=== PATIENT | male | born 1990 | race Caucasian/White ===

== ENCOUNTER 2017-06-03 12:09 | Emergency (ER) | payer OTHER ==
[2017-06-03] MEDS ORDERED: Keppra 500 MG/5 ML*** 500 MG in D5w 100ML Mini Bag 100 ML 100 ML IV ONE (12:16)
--- NOTE | 2017-06-03 12:24 | ERPHSYRPT ---
- History of Present Illness Time Seen by Provider: 06/03/17 12:18 Source: patient, family Exam Limitations: clinical condition Physician History: recurrent seizures since 05/28, released yesterday from [facility] in [place], last seizure today [employer], no bleeding, +post ictal confusion and aphasia as in previous seizures, no tongue bite, no incont, no hx dm or cva Allergies/Adverse Reactions: azithromycin [From Zithromax] Allergy (Verified 05/31/15 18:21) cetirizine HCl [From Zyrtec] Allergy (Verified 05/31/15 18:22) Home Medications: Testosterone Cypionate 200 mg 05/31/15 [History] Venlafaxine HCl [Effexor] 75 mg 05/31/15 [History] Hx Tetanus, Diphtheria Vaccination/Date Given: Yes - Past Medical History Pertinent Past Medical History: Yes Neurological History: Seizures Musculoskeletal History: Other Psycho-Social History: Anxiety, Depression Other Medical History: low testosterone - Past Surgical History Past Surgical History: No - Social History Smoking Status: Never smoker Exposure to second hand smoke: No Drug Use: none Patient Lives Alone: No - Review of Systems Constitutional: No Fever Eyes: No Eye Redness Ears, Nose, & Throat: No Nose Congestion Respiratory: No Cyanosis, No Dyspnea Abdominal/Gastrointestinal: No Vomiting Neurological: No Focal Weakness Psychological: Other (other ros unobtainable at this time) Physical Exam - Nursing Vital Signs Nursing Vital Signs: Initial Vital Signs Temperature 98.2 F 06/03/17 12:10 Pulse Rate 104 H 06/03/17 12:10 Respiratory Rate 20 06/03/17 12:10 Blood Pressure 108/88 06/03/17 12:10 O2 Sat by Pulse Oximetry 99 06/03/17 12:10 Pain Scale Pain Intensity 10 - Humberto Coma Scale Best Eye Response (Humberto): (4) open spontaneously - Physical Exam General Appearance: no apparent distress, alert Eye Exam: bilateral eye: PERRL, EOMI Ears, Nose, Throat Exam: moist mucous membranes Neck Exam: normal inspection Respiratory: normal breath sounds Cardiovascular: regular rate/rhythm Gastrointestinal: soft, No tenderness Extremity Exam: normal inspection 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, 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: No normal speech, No abnormal eye position, No facial asymmetry Skin Exam: normal color SpO2 Interpretation: normal SpO2: 99 Oxygen Delivery: Room Air - Course Nursing assessment & vital signs reviewed: Yes EKG Interpreted by Me: Other (nsr 95 no stemi) - Radiology Exams Chest X-ray Interpretation: Reviewed by me, Other (no gross infil) - CT Exams Cervical Spine CT Interpretation: Discussed w/radiologist, Other (no fx) Head CT Interpretation: Discussed w/radiologist, Other (no bleed) Ordered Tests: Active Orders 24 hr Category Date Time Status Accucheck STAT Care 06/03/17 12:16 Active Acid Polymerization Operator STAT Care 06/03/17 12:17 Active EKG-ER Only STAT Care 06/03/17 12:16 Active IV Insertion STAT Care 06/03/17 12:16 Active NPO (ED) STAT Care 06/03/17 12:16 Active Pulse Oximetry (ED) STAT Care 06/03/17 12:16 Active Seizure Precautions -SCCHED STAT Care 06/03/17 12:28 Active CERVICAL SPINE WO CONTRAST [CT] Stat Exams 06/03/17 12:17 Taken CHEST 1 VIEW (PORTABLE) Stat Exams 06/03/17 12:17 Taken HEAD WITHOUT CONTRAST [CT] Stat Exams 06/03/17 12:17 Taken CBC W DIFF Stat Lab 06/03/17 12:20 Completed CMP Stat Lab 06/03/17 12:20 Completed Lactic Acid Stat Lab 06/03/17 12:26 Completed Urine Triage Profile Stat Lab 06/03/17 12:17 Ordered Medication Summary Discontinued Medications Generic Name Dose Route Start Last Admin Trade Name Freq PRN Reason Stop Dose Admin Levetiracetam 500 mg/ Dextrose 105 mls @ 400 mls/hr 06/03/17 12:16 06/03/17 12:28 IV 06/03/17 12:31 400 mls/hr STAT ONE Administration Lab/Rad Data: Laboratory Result Diagrams 06/03/17 12:20 06/03/17 12:20 Laboratory Results 06/03/17 06/03/17 06/03/17 Range/Units 12:26 12:20 12:20 WBC 5.9 (4.0-10.5) K/mm3 RBC 5.29 (4.1-5.6) M/mm3 Hgb 15.8 (12.5-18.0) gm/dl Hct 47.4 (42-50) % MCV 89.6 (78-100) fl MCH 29.9 (26-32) pg MCHC 33.3 (32-36) g/dl RDW 12.6 (11.5-14.0) % Plt Count 203 (150-450) K/mm3 MPV 11.1 H (6-9.5) fl Gran % 72.8 H (36.0-66.0) % Lymphocytes % 17.1 L (24.0-44.0) % Monocytes % 8.8 (0.0-12.0) % Eosinophils % 1.0 (0.00-5.0) % Basophils % 0.3 (0.0-0.4) % Basophils # 0.02 (0-0.4) Sodium 141 (136-145) mEq/L Potassium 4.1 (3.5-5.1) mEq/L Chloride 104 (98-107) mEq/L Carbon Dioxide 29.0 (21-32) mEq/L Anion Gap 11.7 (5-15) MEQ/L BUN 12 (9-20) mg/dL Creatinine 0.97 (0.55-1.30) mg/dl Estimated GFR > 60 ML/MIN Glucose 101 (70-110) MG/DL Lactic Acid 1.5 (0.4-2.0) Calcium 9.3 (8.5-10.1) mg/dL Total Bilirubin 0.40 (0.2-1.0) mg/dL AST 30 (15-37) U/L ALT 45 (12-78) U/L Alkaline Phosphatase 57 (46-116) U/L Serum Total Protein 7.2 (6.4-8.2) gm/dL Albumin 3.9 (3.4-5.0) g/dL - Progress Progress: improved Progress Note: 06/03/17 14:21 pt and family request transfer to [facility] in [facility], and pt is accept by Dr Ronald Bell Will see patient in: hospital (full admit) Counseled pt/family regarding: lab results, diagnosis, rad results - Departure Time of Disposition: 14:22 Departure Disposition: Transfer Clinical Impression: Seizure Condition: Stable Critical Care Time: No Referrals: SHAD DIAS MD [Primary Care Provider] -
[2017-06-03 12:35] LABS: BASOPHIL % 0.3 % (0.0-0.4); Basophil (Absolute #) 0.02 (0-0.4); Eosinophil (Absolute #) 0.06 (0-0.5); Granulocyte Absolute (ANC) 4.29 (1.4-6.9); Granulocytes % 72.8 % (36.0-66.0); Hematocrit 47.4 % (42-50); Hemoglobin 15.8 gm/dl (12.5-18.0); Lymphocyte (Absolute #) 1.01 (1.0-4.6); Lymphocytes % 17.1 % (24.0-44.0); Mean Cell Volume 89.6 fl (78-100); Mean Corpuscular Hemoglobin 29.9 pg (26-32); Mean Corpuscular Hgb Concent. 33.3 g/dl (32-36); Mean Platelet Volume 11.1 fl (6-9.5); Monocyte (Absolute #) 0.52 (0.0-1.3); Monocytes % 8.8 % (0.0-12.0); Platelet Count 203 K/mm3 (150-450); Red Blood Count 5.29 M/mm3 (4.1-5.6); Red Cell Distribution Width 12.6 % (11.5-14.0); White Blood Count 5.9 K/mm3 (4.0-10.5)
[2017-06-03 12:52] LABS: ALBUMIN 3.9 g/dL (3.4-5.0); ALKALINE PHOSPHATASE 57 U/L (46-116); ANION GAP 11.7 MEQ/L (5-15); BLOOD UREA NITROGEN 12 mg/dL (9-20); CHLORIDE 104 mEq/L (98-107); Calcium 9.3 mg/dL (8.5-10.1); Creatinine 1 0.97 mg/dl (0.55-1.30); EST GLOMERULAR FILTRATION RATE > 60 ML/MIN; Glucose 101 MG/DL (70-110); Potassium 4.1 mEq/L (3.5-5.1); SGOT/AST 30 U/L (15-37); SGPT/ALT 45 U/L (12-78); SODIUM 141 mEq/L (136-145); Total Protein 7.2 gm/dL (6.4-8.2)
[2017-06-03 17:01] VITALS: O2SAT 98
[2017-06-03 17:02] VITALS: BP 136/82; PULSE 86
--- NOTE | 2017-06-03 20:47 | XRAY ---
Indication: Seizure. Comparison: September 29, 2011. Portable chest again demonstrates normal heart, lungs, and bony thorax.
--- NOTE | 2017-06-03 20:59 | XRAY ---
Indication: Syncope and confusion. Multiple contiguous axial images obtained through the head without contrast. Comparison: September 29, 2011. Again normal appearing brain parenchyma, ventricles, and bony calvarium. Visualized paranasal sinuses and mastoid air cells clear. Impression: Stable normal CT head without contrast exam. Comment: Preliminary interpretation was made by [facility]. No critical discrepancy. CTDI 67.22
--- NOTE | 2017-06-03 21:02 | XRAY ---
Indication: Syncope. Neck pain. Multiple contiguous axial images obtained through the cervical spine. Sagittal and coronal reformatted images obtained. Comparison: September 29, 2011. Axial images again negative for acute fracture, suspicious bony lesions, or spinal canal stenosis. Sagittal and coronal reformatted images again demonstrates normal alignment. Vertebral body heights and disc spaces maintained. No acute compression fracture, subluxation, or jump facet. Normal-appearing craniocervical junction. Visualized noncontrasted soft tissues including lung apices unremarkable. CT head reported separately. Impression: Stable normal CT cervical spine. Comment: Preliminary interpretation was made by [facility]. No critical discrepancy. CTDI 53.72
== END 2017-06-03 17:04 | disposition short-term general hospital (02) ==
LOC: ED 12:09
DX: R56.9 Unspecified convulsions (principal)
CPT/HCPCS: 36000; 36415; 70450; 71010; 72125; 80053; 82962; 83605; 85025; 93005; 93041; 96360; 96365; 99285; J1953

== ENCOUNTER 2017-06-27 19:11 | Observation (INO) | payer OTHER ==
[~2017-06-27 19:11] MED LIST: Ativan 2 MG/1 ML VIAL ONE
[2017-06-27 19:32] LABS: BASOPHIL % 0.3 % (0.0-0.4); Basophil (Absolute #) 0.02 (0-0.4); Eosinophil % 1.1 % (0.00-5.0); Eosinophil (Absolute #) 0.08 (0-0.5); Granulocyte Absolute (ANC) 4.47 (1.4-6.9); Granulocytes % 59.9 % (36.0-66.0); Hematocrit 41.5 % (42-50); Hemoglobin 14.2 gm/dl (12.5-18.0); Lymphocyte (Absolute #) 2.16 (1.0-4.6); Mean Cell Volume 87.2 fl (78-100); Mean Corpuscular Hemoglobin 29.8 pg (26-32); Mean Corpuscular Hgb Concent. 34.2 g/dl (32-36); Mean Platelet Volume 11.5 fl (6-9.5); Monocyte (Absolute #) 0.72 (0.0-1.3); Monocytes % 9.7 % (0.0-12.0); Platelet Count 179 K/mm3 (150-450); Red Blood Count 4.76 M/mm3 (4.1-5.6); Red Cell Distribution Width 12.5 % (11.5-14.0); White Blood Count 7.5 K/mm3 (4.0-10.5)
--- NOTE | 2017-06-27 19:33 | ERPHSYRPT ---
- History of Present Illness Source: family, EMS Exam Limitations: clinical condition Timing/Duration: today Severity: moderate Character of Deficits: impaired speech, unable to speak Baseline/Normal Cognition: alert but confused Current Cognition: alert but confused Baseline Gait: walks w/o assistance Associated Symptoms: confusion Hx Tetanus, Diphtheria Vaccination/Date Given: Yes Hx Influenza Vaccination/Date Given: No Hx Pneumococcal Vaccination/Date Given: No <DANIEL LOZADA - Last Filed: 06/27/17 20:57> <ELVIRA JAMES - Last Filed: 06/28/17 07:33> - History of Present Illness Time Seen by Provider: 06/27/17 19:20 Physician History: 27 y/o male with recent history of seizure disorder brought in by ambulance for multiple seizures that started 30 mins prior to arrival. The longest seizure was 4 mins long and the patient went into a post-ictal state. Pt is not able to provide any history due to his somnolent state. Pt was initially diagnosed with seizures on May [id number] and was transferred to [facility] in [place]. CT scan and MRI brain were unremarkable and the patient was started on keppra and topamax. Pt was seen again on June 04 and spent 5 days at [facility] at which time, his keppra dose was increased to 1500mg twice daily. As per mother, patient has been compliant on his medications. Pt is on buspar for depression that was started 2 weeks ago. Of note, patient has been under a lot of stress lately over the past 3 days. No head trauma, no other new mediations, no illicit drug use or alcohol use. Pt did vomit each time he had a seizure, but he has not had any upper respiratory symptoms. ( DANIEL LOZADA) Allergies/Adverse Reactions: azithromycin [From Zithromax] Allergy (Verified 05/31/15 18:21) cetirizine HCl [From Zyrtec] Allergy (Verified 05/31/15 18:22) Home Medications: Testosterone Cypionate 200 mg 05/31/15 [History] Buspirone HCl [Buspar] 1 tab PO BID 06/27/17 [History] Escitalopram Oxalate 20 mg PO DAILY 06/27/17 [History] Levetiracetam [Keppra] 1,500 mg PO BID 06/27/17 [History] Topiramate [Topamax] 50 mg PO QHS 06/27/17 [History] Trazodone HCl 50 mg [Desyrel 50 mg] 1 tab PO BID 06/27/17 [History] - Review of Systems Constitutional: No Fever, No Chills Eyes: No Symptoms Ears, Nose, & Throat: No Symptoms Respiratory: No Cough, No Dyspnea Cardiac: No Chest Pain, No Edema, No Syncope Abdominal/Gastrointestinal: No Abdominal Pain, No Nausea, No Vomiting, No Diarrhea Genitourinary Symptoms: No Dysuria Musculoskeletal: No Back Pain, No Neck Pain Skin: No Rash Neurological: Seizure, Speech Changes, No Dizziness, No Focal Weakness, No Sensory Changes Psychological: Anxiety, No Alcohol Abuse, No Drug Abuse Endocrine: No Symptoms All Other Systems: Reviewed and Negative <DANIEL LOZADA - Last Filed: 06/27/17 20:57> - Past Medical History Pertinent Past Medical History: Yes Neurological History: Seizures Musculoskeletal History: Other Psycho-Social History: Anxiety, Depression Other Medical History: low testosterone - Past Surgical History Past Surgical History: No - Social History Smoking Status: Never smoker Exposure to second hand smoke: No Drug Use: none Patient Lives Alone: No <DANIEL LOZADA - Last Filed: 06/27/17 20:57> - Humberto Coma Scale Best Eye Response ([place]): (4) open spontaneously Best Verbal Response ([place]): (1) no verbal response Best Motor Response ([place]): (6) obeys commands Humberto Total: 11 - Physical Exam General Appearance: no apparent distress, alert Eye Exam: bilateral eye: PERRL, EOMI Ears, Nose, Throat Exam: normal ENT inspection, moist mucous membranes Neck Exam: normal inspection, non-tender, supple, full range of motion Respiratory: normal breath sounds, lungs clear, airway intact, No respiratory distress Cardiovascular: regular rate/rhythm, No edema Gastrointestinal: soft, No tenderness, No distention Back Exam: normal inspection, normal range of motion Extremity Exam: normal inspection, normal range of motion, No pedal edema 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, oriented x 3 appeals rn Exam: normal hearing, PERRL, tongue midline, No normal speech Coordination/Gait: normal finger to nose, normal gait Motor/Sensory: no motor deficit, no sensory deficit Skin Exam: normal color, warm, dry, No rash SpO2 Interpretation: normal <DANIEL LOZADA - Last Filed: 06/27/17 20:57> - Nursing Vital Signs Nursing Vital Signs: Initial Vital Signs Temperature 98.1 F 06/27/17 19:18 Pulse Rate 90 06/27/17 19:18 Respiratory Rate 24 06/27/17 19:18 Blood Pressure 134/81 06/27/17 19:18 O2 Sat by Pulse Oximetry 99 06/27/17 19:18 Pain Scale Pain Intensity 0 - Course Nursing assessment & vital signs reviewed: Yes EKG Interpreted by Me: RATE (HR 76), NORMAL AXIS, NORMAL INTERVALS, NORMAL QRS <DANIEL LOZADA - Last Filed: 06/27/17 20:57> Ordered Tests: Active Orders 24 hr Category Date Time Status Accucheck STAT Care 06/27/17 19:23 Active Clean Catch Urine Specimen STAT Care 06/27/17 19:46 Active EKG-ER Only STAT Care 06/27/17 19:23 Active IV Insertion STAT Care 06/27/17 19:23 Active IV Insertion-2nd Peripheral STAT Care 06/27/17 19:26 Active NPO (ED) STAT Care 06/27/17 19:23 Active CBC W DIFF Stat Lab 06/27/17 19:23 Completed CMP Stat Lab 06/27/17 19:23 Completed ETHYL ALCOHOL Stat Lab 06/27/17 19:24 Completed Lactic Acid Stat Lab 06/27/17 19:28 Completed UA W/RFX UR CULTURE Stat Lab 06/27/17 20:15 Completed Urine Triage Profile Stat Lab 06/27/17 20:15 Completed Medication Summary Generic Name Dose Route Start Last Admin Trade Name Freq PRN Reason Stop Dose Admin Buspirone HCl 10 mg 06/28/17 08:00 Buspar 5 Mg PO 07/28/17 07:59 BID HORTENCIA Escitalopram Oxalate 20 mg 06/28/17 08:00 Lexapro 10 Mg PO 07/28/17 07:59 QAM HROTENCIA Levetiracetam 1,500 mg 06/28/17 08:00 Keppra 500 Mg PO 07/28/17 07:59 BID HORTENCIA Topiramate 50 mg 06/28/17 08:00 Topamax 25 Mg PO 07/28/17 07:59 BID HORTENCIA Discontinued Medications Generic Name Dose Route Start Last Admin Trade Name Louann PRN Reason Stop Dose Admin Buspirone HCl 10 mg 06/28/17 00:25 06/28/17 00:49 Buspar 5 Mg PO 06/28/17 00:26 10 mg ONCE ONE Administration Buspirone HCl Confirm 06/28/17 00:32 Buspar 5 Mg Administered 06/28/17 00:33 Dose 10 mg .ROUTE .STK-MED ONE Levetiracetam 1,500 mg/ 115 mls @ 220 mls/hr 06/27/17 20:03 06/27/17 20:14 Dextrose IV 06/27/17 20:34 220 mls/hr STAT ONE Administration Sodium Chloride Confirm 06/27/17 20:05 Sodium Chloride 0.9% 100 Ml Ivpb Administered 06/27/17 20:06 Dose 100 mls @ ud IV .STK-MED ONE Sodium Chloride Confirm 06/27/17 20:07 Sodium Chloride 0.9% 100 Ml Ivpb Administered 06/27/17 20:08 Dose 100 mls @ ud IV .STK-MED ONE Dextrose Confirm 06/27/17 20:26 D5w 100ml Mini Bag 100 Ml Administered 06/27/17 20:27 Dose 200 mls @ ud IV .STK-MED ONE Levetiracetam Confirm 06/27/17 20:04 Keppra 500 Mg/5 Ml Administered 06/27/17 20:05 Dose 1,000 mg .ROUTE .STK-MED ONE Levetiracetam 500 mg 06/27/17 20:19 Keppra 500 Mg/5 Ml IV 06/27/17 20:20 .STK-MED ONE Ondansetron HCl 4 mg 06/27/17 20:00 06/27/17 20:12 Zofran 4 Mg/2 Ml Vial IV 06/27/17 20:01 4 mg STAT ONE Administration Ondansetron HCl Confirm 06/27/17 20:00 Zofran 4 Mg/2 Ml Vial Administered 06/27/17 20:01 Dose 4 mg .ROUTE .STK-MED ONE Topiramate 50 mg 06/28/17 00:28 06/28/17 00:49 Topamax 25 Mg PO 06/28/17 00:29 50 mg ONCE ONE Administration Topiramate Confirm 06/28/17 00:45 Topamax 100 Mg Administered 06/28/17 00:46 Dose 100 mg .ROUTE .STK-MED ONE Lab/Rad Data: Laboratory Result Diagrams 06/27/17 19:23 06/27/17 19:23 Laboratory Results 06/27/17 06/27/17 06/27/17 Range/Units 20:15 20:15 19:28 WBC (4.0-10.5) K/mm3 RBC (4.1-5.6) M/mm3 Hgb (12.5-18.0) gm/dl Hct (42-50) % MCV (78-100) fl MCH (26-32) pg MCHC (32-36) g/dl RDW (11.5-14.0) % Plt Count (150-450) K/mm3 MPV (6-9.5) fl Gran % (36.0-66.0) % Lymphocytes % (24.0-44.0) % Monocytes % (0.0-12.0) % Eosinophils % (0.00-5.0) % Basophils % (0.0-0.4) % Basophils # (0-0.4) Sodium (136-145) mEq/L Potassium (3.5-5.1) mEq/L Chloride (98-107) mEq/L Carbon Dioxide (21-32) mEq/L Anion Gap (5-15) MEQ/L BUN (9-20) mg/dL Creatinine (0.55-1.30) mg/dl Estimated GFR ML/MIN Glucose (70-110) MG/DL Lactic Acid 1.3 (0.4-2.0) Calcium (8.5-10.1) mg/dL Total Bilirubin (0.2-1.0) mg/dL AST (15-37) U/L ALT (12-78) U/L Alkaline Phosphatase (46-116) U/L Serum Total Protein (6.4-8.2) gm/dL Albumin (3.4-5.0) g/dL Ur Collection Type CCMS Urine Color YELLOW (YELLOW) Urine Appearance CLEAR (CLEAR) Urine pH 5.0 (5-6) Ur Specific [place] 1.025 (1.005-1.025) Urine Protein NEGATIVE (Negative) Urine Ketones SMALL (NEGATIVE) Urine Blood NEGATIVE (0-5) Eliel/ul Urine Nitrite NEGATIVE (NEGATIVE) Urine Bilirubin NEGATIVE (NEGATIVE) Urine Urobilinogen NORMAL (0-1) mg/dL Ur Leukocyte Esterase NEGATIVE (NEGATIVE) Urine Culture Reflexed NO (NO) Urine Glucose NEGATIVE (NEGATIVE) mg/dL Urine Opiates Level NEG. (NEGATIVE) Ur Methadone NEG. (NEGATIVE) Urine Barbiturates NEG. (NEGATIVE) Ur Phencyclidine (PCP) NEG. (NEGATIVE) Urine Amphetamine NEG. (NEGATIVE) U Benzodiazepine Level POS. (NEGATIVE) Urine Cocaine NEG. (NEGATIVE) Urine Marijuana (THC) NEG. (NEGATIVE) Ethyl Alcohol (0.00-0.01) % Specimen Received 06-27-17202406/27/17 06/27/17 06/27/17 Range/Units 19:24 19:23 19:23 WBC 7.5 (4.0-10.5) K/mm3 RBC 4.76 (4.1-5.6) M/mm3 Hgb 14.2 (12.5-18.0) gm/dl Hct 41.5 L (42-50) % MCV 87.2 (78-100) fl MCH 29.8 (26-32) pg MCHC 34.2 (32-36) g/dl RDW 12.5 (11.5-14.0) % Plt Count 179 (150-450) K/mm3 MPV 11.5 H (6-9.5) fl Gran % 59.9 (36.0-66.0) % Lymphocytes % 29.0 (24.0-44.0) % Monocytes % 9.7 (0.0-12.0) % Eosinophils % 1.1 (0.00-5.0) % Basophils % 0.3 (0.0-0.4) % Basophils # 0.02 (0-0.4) Sodium 141 (136-145) mEq/L Potassium 3.6 (3.5-5.1) mEq/L Chloride 106 (98-107) mEq/L Carbon Dioxide 23.0 (21-32) mEq/L Anion Gap 15.4 H (5-15) MEQ/L BUN 17 (9-20) mg/dL Creatinine 1.22 (0.55-1.30) mg/dl Estimated GFR > 60 ML/MIN Glucose 107 (70-110) MG/DL Lactic Acid (0.4-2.0) Calcium 8.9 (8.5-10.1) mg/dL Total Bilirubin 0.30 (0.2-1.0) mg/dL AST 21 (15-37) U/L ALT 20 (12-78) U/L Alkaline Phosphatase 48 (46-116) U/L Serum Total Protein 6.7 (6.4-8.2) gm/dL Albumin 4.0 (3.4-5.0) g/dL Ur Collection Type Urine Color (YELLOW) Urine Appearance (CLEAR) Urine pH (5-6) Ur Specific [place] (1.005-1.025) Urine Protein (Negative) Urine Ketones (NEGATIVE) Urine Blood (0-5) Eliel/ul Urine Nitrite (NEGATIVE) Urine Bilirubin (NEGATIVE) Urine Urobilinogen (0-1) mg/dL Ur Leukocyte Esterase (NEGATIVE) Urine Culture Reflexed (NO) Urine Glucose (NEGATIVE) mg/dL Urine Opiates Level (NEGATIVE) Ur Methadone (NEGATIVE) Urine Barbiturates (NEGATIVE) Ur Phencyclidine (PCP) (NEGATIVE) Urine Amphetamine (NEGATIVE) U Benzodiazepine Level (NEGATIVE) Urine Cocaine (NEGATIVE) Urine Marijuana (THC) (NEGATIVE) Ethyl Alcohol < 0.010 (0.00-0.01) % Specimen Received - Progress Progress: unchanged <DANIEL LOZADA - Last Filed: 06/27/17 20:57> - Progress Discussed with : Reji Will see patient in: hospital (observation) Counseled pt/family regarding: lab results, diagnosis <ELVIRA JAMES - Last Filed: 06/28/17 07:33> - Progress Progress Note: 06/27/17 20:04 Pt has had 2 seizures in the ER, with the longest lasting about 45 seconds. Pt turns red and stiffens up. Pt will be loaded with keppra 1500mg IV loading dose. Pt will be transferred to neurology group at [facility]. 06/27/17 20:57 I spoke to the neurologist, Dr De Dios and the patient has been accepted, however, there is a several hour wait for a bed to open up. I attempted to admit the patient for observation but the hospitalist, Dr Barlow refused the admission. Patient will be held in the ER until a bed opens up for transfer to [facility]. (DANIEL LOZADA) Dr. Mendoza notified and agreed to accept pt. for further care while awaiting transfer to [place] at [address]. 06/28/17 07:33 (ELVIRA JAMES) <DANIEL LOZADA - Last Filed: 06/27/17 20:57> - Departure Time of Disposition: 07:32 Departure Disposition: Observation Critical Care Time: No <ELVIRA JAMES - Last Filed: 06/28/17 07:33> - Departure Clinical Impression: Intractable seizures Condition: Stable Referrals: SHAD MENDOZA MD [Primary Care Provider] -
[2017-06-27] MEDS ORDERED: Zofran 4 MG/2 ML VIAL IV ONE (20:00)
[2017-06-27] MEDS ORDERED: Zofran 4 MG/2 ML VIAL ONE (20:00)
[2017-06-27] MEDS ORDERED: Keppra 500 MG/5 ML*** 1,500 MG in D5w 100ML Mini Bag 100 ML 100 ML IV ONE (20:03)
[2017-06-27 20:04] LABS: ALKALINE PHOSPHATASE 48 U/L (46-116); ANION GAP 15.4 MEQ/L (5-15); BLOOD UREA NITROGEN 17 mg/dL (9-20); CHLORIDE 106 mEq/L (98-107); Calcium 8.9 mg/dL (8.5-10.1); Creatinine 1 1.22 mg/dl (0.55-1.30); EST GLOMERULAR FILTRATION RATE > 60 ML/MIN; Glucose 107 MG/DL (70-110); Potassium 3.6 mEq/L (3.5-5.1); SGOT/AST 21 U/L (15-37); SGPT/ALT 20 U/L (12-78); SODIUM 141 mEq/L (136-145); Total Protein 6.7 gm/dL (6.4-8.2)
[2017-06-27] MEDS ORDERED: Keppra 500 MG/5 ML ONE (20:04)
[2017-06-27] MEDS ORDERED: Sodium Chloride 0.9% 100 ML IVPB 100 ML IV ONE ×2 (20:05→20:07)
[2017-06-27] MEDS ORDERED: Keppra 500 MG/5 ML IV ONE (20:19)
[2017-06-27 20:25] LABS: Appearance CLEAR (CLEAR); Glucose NEGATIVE (NEGATIVE); Leukocyte Esterase NEGATIVE (NEGATIVE); Nitrite NEGATIVE (NEGATIVE); Protein,Urine Dip NEGATIVE (Negative); Specific Gravity 1.025 (1.005-1.025)
[2017-06-27 20:26] LABS: Bilirubin NEGATIVE (NEGATIVE); Blood NEGATIVE Ery/ul (0-5); Ketones SMALL (NEGATIVE); Urobilinogen NORMAL mg/dL (0-1)
[2017-06-27] MEDS ORDERED: D5w 100ML Mini Bag 100 ML 200 ML IV ONE (20:26)
[2017-06-27 20:31] LABS: Amphetamine,Urine NEG. (NEGATIVE); Barbiturate,Urine NEG. (NEGATIVE); Benzodiazepine,Urine POS. (NEGATIVE); Cocaine,Urine NEG. (NEGATIVE); Methadone,Urine NEG. (NEGATIVE); Opiate,Urine NEG. (NEGATIVE); PCP,Urine NEG. (NEGATIVE); THC,Urine NEG. (NEGATIVE)
[2017-06-28] MEDS ORDERED: BUSPAR 5 MG PO ONE (00:25)
[2017-06-28] MEDS ORDERED: Topamax 25 MG PO ONE (00:28)
[2017-06-28] MEDS ORDERED: BUSPAR 5 MG ONE (00:32)
[2017-06-28] MEDS ORDERED: Topamax 100 MG ONE (00:45)
[2017-06-28] MEDS ORDERED: Ativan 2 MG/1 ML VIAL IV PRN (08:10)
[2017-06-28] MEDS ORDERED: Ativan 2 MG/1 ML VIAL ONE (08:12)
--- NOTE | 2017-06-28 08:53 | PCM.HP ---
History of Present Illness - Chief Complaint Chief Complaint: seizures History of Present Illness: is a 27 year old male with recently diagnosed epilepsy at [facility]. He has a remote history of head injury but nothing recent, his seizures have been intractable and difficult to control. There is a thought of some relationship to stress, perhaps PTSD from his job as well as his video EEG at [facility] showed a component of psychiatric pseudoseizures as well. He apparently has had multiple seizures since yesterday, there are no beds available at [facility]. He had a seizure immediately upon arrival to the floor , has been given ativan and is being transferred to ICU. - Review of Systems Constitutional: No Fever, No Chills Respiratory: No Cough, No Short Of Breath Cardiac: No Chest Pain, No Edema, No Syncope Abdominal/Gastrointestinal: No Abdominal Pain, No Nausea, No Vomiting, No Diarrhea Neurological: Seizure All Other Systems: Reviewed and Negative Medications & Allergies Home Medications: Home Medication List Buspirone HCl [Buspar] 1 tab PO BID 06/27/17 [History Confirmed 06/28/17] Escitalopram Oxalate 20 mg PO DAILY 06/27/17 [History Confirmed 06/28/17] Levetiracetam [Keppra] 1,500 mg PO BID 06/27/17 [History Confirmed 06/28/17] Topiramate [Topamax] 50 mg PO BID 06/27/17 [History Confirmed 06/28/17] Trazodone HCl 50 mg [Desyrel 50 mg] 1 tab PO BID 06/27/17 [History Confirmed 06/28/17] Allergies/Adverse Reactions: Allergies Allergy/AdvReac Type Severity Reaction Status Date / Time azithromycin [From Zithromax] Allergy Verified 06/28/17 08:40 cetirizine HCl [From Zyrtec] Allergy Verified 06/28/17 08:40 - Past Medical History Past Medical History: Yes Neurological History: Seizures ENT History: No Pertinent History Cardiac History: No Pertinent History Respiratory History: No Pertinent History Endocrine Medical History: No Pertinent History Musculoskelatal History: Other GI Medical History: No Pertinent History History: No Pertinent History Pyscho-Social History: Anxiety, Depression Male Reproductive Disorders: No Pertinent History Comment: low testosterone - Past Surgical History Past Surgical History: No - Social History Smoking Status: Never smoker Exposure to second hand smoke: No Alcohol: None Drug Use: none - Physical Exam Vital Signs: Vital Signs - 24 hr Temp Pulse Resp BP Pulse Ox 06/28/17 07:40 74 16 134/64 97 06/28/17 06:47 72 18 98 06/28/17 05:56 68 18 98 06/28/17 05:00 62 18 128/81 98 06/28/17 03:00 60 14 98 06/28/17 02:42 63 14 98 06/28/17 01:44 74 18 98 06/28/17 00:50 67 20 98 06/27/17 23:57 90 18 124/59 98 06/27/17 23:36 92 H 18 124/59 97 06/27/17 22:46 72 16 140/84 97 06/27/17 22:12 68 18 122/76 98 06/27/17 21:02 68 18 120/76 97 06/27/17 20:17 72 16 127/74 97 06/27/17 19:46 84 16 147/88 98 06/27/17 19:18 98.1 F 90 24 134/81 99 General Appearance: no apparent distress, alert, other (unable to speak, per RT this is his usual "post-ictal" state and he is unable to speak for a period of time. he is alert, cooperative and nods or shakes his head to answer yes or no questions) Neurologic Exam: alert, oriented x 3, cooperative, No motor deficits, No intoxicated appearance, No motor weakness Eye Exam: PERRL/EOMI, eyes nml inspection Neck Exam: normal inspection, non-tender, supple, full range of motion Respiratory Exam: normal breath sounds, lungs clear, No respiratory distress Cardiovascular Exam: regular rate/rhythm, normal heart sounds, normal peripheral pulses Gastrointestinal/Abdomen Exam: soft, normal bowel sounds, No tenderness, No mass Extremity Exam: normal inspection, normal range of motion, pelvis stable Skin Exam: normal color, warm, dry, No rash Assessment/Plan (1) Intractable seizures Current Visit: Yes Status: Acute Assessment & Plan: has been given a dose of IV ativan, will continue this as well as his home meds at this time and observe in ICU until a bed is available for him to be under the care of his neurology team at [facility]. he denies any recent cough, fever or other signs of infection. Code(s): G40.919 - EPILEPSY, UNSP, INTRACTABLE, WITHOUT STATUS EPILEPTICUS
[2017-06-28] MEDS: KEPPRA 500 MG PO SCH ×3 (09:45→20:39)
[2017-06-28] MEDS: Lexapro 10 MG PO SCH ×2 (09:45→10:48)
[2017-06-28] MEDS: BUSPAR 5 MG PO SCH ×3 (09:46→20:39)
[2017-06-28] MEDS: Topamax 25 MG PO SCH ×3 (09:52→20:39)
[2017-06-28 20:07] VITALS: BP 128/77; PULSE 66; O2SAT 98
[2017-06-28] MEDS ORDERED: DESYREL 50 MG PO SCH (22:00)
== END 2017-06-28 20:45 ==
LOC: ED 19:11 → MED SURG 06-28 07:55 → ICU 06-28 07:55
PROVIDERS: ADMIT Family Medicine; ATTEND Family Medicine
DX: G40.919 Epilepsy, unspecified, intractable, without status epilepticus (principal); Z79.899 Other long term (current) drug therapy; F41.8 Other specified anxiety disorders
CPT/HCPCS: 36000; 36415; 80053; 80177; 80307; 81002; 82962; 83605; 85025; 93005; 96365; G0378; G0481; J1953; J2060; J2405; A9270-GY

== ENCOUNTER 2017-07-04 12:13 | Emergency (ER) | payer OTHER ==
[2017-07-04] MEDS ORDERED: Sodium Chloride 0.9% 1000 ML 1,000 ML ONE (12:42)
[2017-07-04] MEDS: Sodium Chloride 0.9% 1000 ML 1,000 ML IV STA (12:43)
[2017-07-04 13:09] LABS: ANION GAP 18.5 MEQ/L (5-15); BLOOD UREA NITROGEN 15 mg/dL (9-20); CHLORIDE 105 mEq/L (98-107); Calcium 9.2 mg/dL (8.5-10.1); Carbon Dioxide 19.5 mEq/L (21-32); Creatinine 1 1.27 mg/dl (0.55-1.30); EST GLOMERULAR FILTRATION RATE > 60 ML/MIN; Glucose 101 MG/DL (70-110); Potassium 3.8 mEq/L (3.5-5.1); SODIUM 139 mEq/L (136-145)
--- NOTE | 2017-07-04 13:43 | ERPHSYRPT ---
- History of Present Illness Time Seen by Provider: 07/04/17 12:34 Source: patient (and dad), family (mom and dad) Patient Subjective Stated Complaint: Pt mother states "He has been having seizures since . He just got home from [facility]. He had a seizure on monday and today he came to visit me and he had another seizure. He told me his hands went numb then he goes into this contraction seizure. This one lasted 15 minutes."" Triage Nursing Assessment: Pt alert and oriented X2, skin pwd. PT not speaking , making hand gestures, looks at people when spoken to. will shake head to answer questions. Physician History: CC: seizure hx: 27 y/o patient of Dr Dias and Dr Millan [facility]. He was visiting his mother's office and had 2 seizures. Typical of his recent seizures. He has been admitted twice at [facility]. Home late last night. Recently increased keppra to 1500 BID and topamax to 300mg daily. No injury. He has aura of tongue numbness followed by seizure. 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 Pt not given oral hx of arrival to eR. Timing/Duration: today Allergies/Adverse Reactions: azithromycin [From Zithromax] Allergy (Verified 06/28/17 08:40) cetirizine HCl [From Zyrtec] Allergy (Verified 06/28/17 08:40) Home Medications: Buspirone HCl [Buspar] 1 tab PO BID 06/27/17 [History] Escitalopram Oxalate 20 mg PO DAILY 06/27/17 [History] Levetiracetam [Keppra] 1,500 mg PO BID 06/27/17 [History] Topiramate [Topamax] 300 mg PO BID 06/27/17 [History] Trazodone HCl 50 mg [Desyrel 50 mg] 1 tab PO BID 06/27/17 [History] Hx Tetanus, Diphtheria Vaccination/Date Given: Yes Hx Influenza Vaccination/Date Given: Yes Hx Pneumococcal Vaccination/Date Given: No Immunizations Up to Date: Yes - Review of Systems Constitutional: No Symptoms Abdominal/Gastrointestinal: No Vomiting Musculoskeletal: No Injury Skin: No Rash Neurological: Headache, Seizure All Other Systems: Unable due to condition - Past Medical History Pertinent Past Medical History: Yes Neurological History: Seizures ENT History: No Pertinent History Cardiac History: No Pertinent History Respiratory History: No Pertinent History Endocrine Medical History: No Pertinent History Musculoskeletal History: Fractures, Other GI Medical History: No Pertinent History History: No Pertinent History Psycho-Social History: Anxiety, Depression Male Reproductive Disorders: No Pertinent History Other Medical History: low testosterone,back/ankle/knee hx fx. Epileptiform and Non-Epileptiform Seizures. Arnold-Chiari Malformation - Past Surgical History Past Surgical History: No - Social History Smoking Status: Never smoker Exposure to second hand smoke: No Drug Use: none Patient Lives Alone: No - Nursing Vital Signs Nursing Vital Signs: Initial Vital Signs Pulse Rate 88 07/04/17 12:21 Respiratory Rate 16 07/04/17 12:21 Blood Pressure 144/92 07/04/17 12:21 O2 Sat by Pulse Oximetry 98 07/04/17 12:21 Pain Scale Pain Intensity 2 - Humberto Coma Scale Best Eye Response (Humberto): (4) open spontaneously Best Verbal Response (Humberto): (5) oriented Best Motor Response (Humberto): (6) obeys commands Humberto Total: 15 - Physical Exam General Appearance: alert, other (follows simple commands) Eye Exam: bilateral eye: PERRL, EOMI Ears, Nose, Throat Exam: normal ENT inspection, moist mucous membranes Neck Exam: normal inspection, non-tender, supple, No meningismus Respiratory: normal breath sounds, lungs clear Cardiovascular: regular rate/rhythm, No murmur Gastrointestinal: soft, No tenderness, No distention, No mass, No guarding Back Exam: normal inspection, normal range of motion Extremity Exam: normal inspection, normal range of motion 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, oriented x 3, cooperative Motor/Sensory: no motor deficit, no sensory deficit Skin Exam: normal color, warm, dry, No rash SpO2 Interpretation: normal SpO2: 98 Oxygen Delivery: Room Air - Course Nursing assessment & vital signs reviewed: Yes Rhythm Strip: Rate (89), Normal Sinus Rhythm Ordered Tests: Active Orders 24 hr Category Date Time Status Enroller STAT Care 07/04/17 12:35 Active IV Insertion STAT Care 07/04/17 12:35 Active Pulse Oximetry (ED) STAT Care 07/04/17 12:35 Active Seizure Precautions -SCCHED STAT Care 07/04/17 12:35 Active BMP Stat Lab 07/04/17 12:20 Completed Medication Summary Discontinued Medications Generic Name Dose Route Start Last Admin Trade Name Louann PRN Reason Stop Dose Admin Sodium Chloride 1,000 mls @ 999 mls/hr 07/04/17 12:35 07/04/17 12:43 Sodium Chloride 0.9% 1000 Ml IV 07/04/17 13:35 999 mls/hr .Q1H1M STA Administration Sodium Chloride Confirm 07/04/17 12:42 Sodium Chloride 0.9% 1000 Ml Administered 07/04/17 12:43 Dose 1,000 mls @ ud .ROUTE .STK-MED ONE Lab/Rad Data: Laboratory Result Diagrams 07/04/17 12:20 Laboratory Results 07/04/17 Range/Units 12:20 Sodium 139 (136-145) mEq/L Potassium 3.8 (3.5-5.1) mEq/L Chloride 105 (98-107) mEq/L Carbon Dioxide 19.5 L (21-32) mEq/L Anion Gap 18.5 H (5-15) MEQ/L BUN 15 (9-20) mg/dL Creatinine 1.27 (0.55-1.30) mg/dl Estimated GFR > 60 ML/MIN Glucose 101 (70-110) MG/DL Calcium 9.2 (8.5-10.1) mg/dL - Progress Progress Note: 07/04/17 13:43 Pt alert and improving. He usually does not speak after these spells. He does not want to require admission again. Will call Dr Millan his neurologist. 07/04/17 15:40 Pt stable. No further seizure activity. He ambulated well. Speaking again. Drinking sprite. Family has been with him. Called Dr Roberts covering for Dr Millan his [facility] neurologist. He advised release home with seizure instructions, same meds, and call office for follow up. Counseled pt/family regarding: lab results, diagnosis, need for follow-up - Departure Time of Disposition: 15:41 Departure Disposition: Home Clinical Impression: Seizures Condition: Stable Critical Care Time: No Referrals: SHAD DIAS MD [Primary Care Provider] - Instructions: Seizures, Adult (DC) Additional Instructions: No driving, climbing, operating machinery, swimming, hot tubs. Take topamax and keppra as already instructed. Call Dr Millan office tomorrow to arrange follow up.
[2017-07-04 15:07] VITALS: O2SAT 98
[2017-07-04 15:58] VITALS: BP 128/68; PULSE 72
== END 2017-07-04 16:05 | disposition home or self-care (01) ==
LOC: ED 12:13
DX: R56.9 Unspecified convulsions (principal); F41.8 Other specified anxiety disorders; Z79.899 Other long term (current) drug therapy
CPT/HCPCS: 36000; 36415; 80048; 93041; 96360; 99285

== ENCOUNTER 2017-07-11 13:13 | Emergency (ER) | payer OTHER ==
[2017-07-11 13:43] LABS: BASOPHIL % 0.2 % (0.0-0.4); Basophil (Absolute #) 0.01 (0-0.4); Eosinophil % 0.4 % (0.00-5.0); Eosinophil (Absolute #) 0.02 (0-0.5); Granulocyte Absolute (ANC) 3.84 (1.4-6.9); Granulocytes % 68.5 % (36.0-66.0); Hematocrit 39.5 % (42-50); Hemoglobin 13.6 gm/dl (12.5-18.0); Lymphocytes % 21.4 % (24.0-44.0); Mean Cell Volume 86.4 fl (78-100); Mean Corpuscular Hemoglobin 29.8 pg (26-32); Mean Corpuscular Hgb Concent. 34.4 g/dl (32-36); Mean Platelet Volume 11.3 fl (6-9.5); Monocyte (Absolute #) 0.53 (0.0-1.3); Monocytes % 9.5 % (0.0-12.0); Platelet Count 166 K/mm3 (150-450); Red Blood Count 4.57 M/mm3 (4.1-5.6); Red Cell Distribution Width 12.5 % (11.5-14.0); White Blood Count 5.6 K/mm3 (4.0-10.5)
--- NOTE | 2017-07-11 13:53 | ERPHSYRPT ---
- History of Present Illness Time Seen by Provider: 07/11/17 13:14 Source: family (parents), EMS (gave 10mg versed before seizure stopped) Patient Subjective Stated Complaint: ems stated "he had a really bad seizure." Triage Nursing Assessment: Pt alert, lethargic, not speaking, communicating with writing and hand gestures. Skin pwd. PT in no apparent respiratory distress. Physician History: CC: seizure Hx: 27 y/o patient with hx of epileptic and non-epileptiform seizures. He is taking keppra 1500mg BID and 300mg daily topamax. He exercised this AM. He was at Dad's shop and had seizure. Worse than past. He has had about 5 seizure spells since last ER visit. Still taking medications. Has not been able to follow up with neurology yet. Mom is working on the insurance. Allergies/Adverse Reactions: azithromycin [From Zithromax] Allergy (Verified 06/28/17 08:40) cetirizine HCl [From Zyrtec] Allergy (Verified 06/28/17 08:40) Home Medications: Buspirone HCl [Buspar] 1 tab PO BID 06/27/17 [History] Escitalopram Oxalate 20 mg PO DAILY 06/27/17 [History] Levetiracetam [Keppra] 1,500 mg PO BID 06/27/17 [History] Topiramate [Topamax] 300 mg PO BID 06/27/17 [History] Trazodone HCl 50 mg [Desyrel 50 mg] 1 tab PO BID 06/27/17 [History] Hx Tetanus, Diphtheria Vaccination/Date Given: Yes Hx Influenza Vaccination/Date Given: Yes Hx Pneumococcal Vaccination/Date Given: No Immunizations Up to Date: Yes - Review of Systems Constitutional: No Fever, No Chills Respiratory: No Dyspnea Cardiac: No Chest Pain Abdominal/Gastrointestinal: No Vomiting Musculoskeletal: No Back Pain, No Neck Pain, No Deformity All Other Systems: Unable due to condition (not speaking after seizure but does nod head and make motions to answer questions) - Past Medical History Pertinent Past Medical History: Yes Neurological History: Seizures ENT History: No Pertinent History Cardiac History: No Pertinent History Respiratory History: No Pertinent History Endocrine Medical History: No Pertinent History Musculoskeletal History: Fractures, Other GI Medical History: No Pertinent History History: No Pertinent History Psycho-Social History: Anxiety, Depression Male Reproductive Disorders: No Pertinent History Other Medical History: low testosterone,back/ankle/knee hx fx. Epileptiform and Non-Epileptiform Seizures. Arnold-Chiari Malformation - Past Surgical History Past Surgical History: No - Social History Smoking Status: Never smoker Exposure to second hand smoke: No Drug Use: none Patient Lives Alone: No - Nursing Vital Signs Nursing Vital Signs: Initial Vital Signs Temperature 98.1 F 07/11/17 13:14 Pulse Rate 88 07/11/17 13:14 Respiratory Rate 14 07/11/17 13:14 Blood Pressure 133/72 07/11/17 13:14 O2 Sat by Pulse Oximetry 97 07/11/17 13:14 Pain Scale Pain Intensity 0 - Humberto Coma Scale Best Eye Response (Humberto): (4) open spontaneously Best Verbal Response ([place]): (1) no verbal response (but makes motion and communicates well) Best Motor Response (Humberto): (6) obeys commands Humberto Total: 11 - Physical Exam General Appearance: alert Eye Exam: bilateral eye: PERRL, EOMI Ears, Nose, Throat Exam: normal ENT inspection, moist mucous membranes Neck Exam: normal inspection, non-tender, supple Respiratory: normal breath sounds, chest tenderness, lungs clear Cardiovascular: regular rate/rhythm Gastrointestinal: soft Back Exam: normal inspection, No CVA tenderness, No vertebral tenderness Extremity Exam: normal inspection, normal range of motion, No calf tenderness, No pedal edema 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 Motor/Sensory: no motor deficit, no sensory deficit, no pronator drift Skin Exam: warm, dry, No rash SpO2 Interpretation: normal SpO2: 97 Oxygen Delivery: Room Air - Course Nursing assessment & vital signs reviewed: Yes Ordered Tests: Active Orders 24 hr Category Date Time Status CO2 Monitoring STAT Care 07/11/17 13:15 Active Clean Catch Urine Specimen STAT Care 07/11/17 13:14 Active IV Insertion STAT Care 07/11/17 13:14 Active Pulse Oximetry (ED) STAT Care 07/11/17 13:14 Active Seizure Precautions -SCCHED STAT Care 07/11/17 13:14 Active BMP Stat Lab 07/11/17 13:30 Completed CBC W DIFF Stat Lab 07/11/17 13:30 Completed CK-Creatinine Phosphokinase Stat Lab 07/11/17 13:30 Completed UA W/RFX UR CULTURE Stat Lab 07/11/17 13:30 Completed Lab/Rad Data: Laboratory Result Diagrams 07/11/17 13:30 07/11/17 13:30 Laboratory Results 07/11/17 07/11/17 07/11/17 Range/Units 13:30 13:30 13:30 WBC 5.6 (4.0-10.5) K/mm3 RBC 4.57 (4.1-5.6) M/mm3 Hgb 13.6 (12.5-18.0) gm/dl Hct 39.5 L (42-50) % MCV 86.4 (78-100) fl MCH 29.8 (26-32) pg MCHC 34.4 (32-36) g/dl RDW 12.5 (11.5-14.0) % Plt Count 166 (150-450) K/mm3 MPV 11.3 H (6-9.5) fl Gran % 68.5 H (36.0-66.0) % Lymphocytes % 21.4 L (24.0-44.0) % Monocytes % 9.5 (0.0-12.0) % Eosinophils % 0.4 (0.00-5.0) % Basophils % 0.2 (0.0-0.4) % Basophils # 0.01 (0-0.4) Sodium 139 (136-145) mEq/L Potassium 3.7 (3.5-5.1) mEq/L Chloride 110 H (98-107) mEq/L Carbon Dioxide 21.3 (21-32) mEq/L Anion Gap 11.7 (5-15) MEQ/L BUN 16 (9-20) mg/dL Creatinine 1.21 (0.55-1.30) mg/dl Estimated GFR > 60 ML/MIN Glucose 94 (70-110) MG/DL Calcium 8.4 L (8.5-10.1) mg/dL Creatine Kinase 144 (39-308) U/L Ur Collection Type Urine Color (YELLOW) Urine Appearance (CLEAR) Urine pH (5-6) Ur Specific [place] (1.005-1.025) Urine Protein (Negative) Urine Ketones (NEGATIVE) Urine Blood (0-5) Eliel/ul Urine Nitrite (NEGATIVE) Urine Bilirubin (NEGATIVE) Urine Urobilinogen (0-1) mg/dL Ur Leukocyte Esterase (NEGATIVE) Urine Culture Reflexed (NO) Urine Glucose (NEGATIVE) mg/dL Specimen Received 07/11/17 Range/Units 13:30 WBC (4.0-10.5) K/mm3 RBC (4.1-5.6) M/mm3 Hgb (12.5-18.0) gm/dl Hct (42-50) % MCV (78-100) fl MCH (26-32) pg MCHC (32-36) g/dl RDW (11.5-14.0) % Plt Count (150-450) K/mm3 MPV (6-9.5) fl Gran % (36.0-66.0) % Lymphocytes % (24.0-44.0) % Monocytes % (0.0-12.0) % Eosinophils % (0.00-5.0) % Basophils % (0.0-0.4) % Basophils # (0-0.4) Sodium (136-145) mEq/L Potassium (3.5-5.1) mEq/L Chloride (98-107) mEq/L Carbon Dioxide (21-32) mEq/L Anion Gap (5-15) MEQ/L BUN (9-20) mg/dL Creatinine (0.55-1.30) mg/dl Estimated GFR ML/MIN Glucose (70-110) MG/DL Calcium (8.5-10.1) mg/dL Creatine Kinase (39-308) U/L Ur Collection Type VOID Urine Color YELLOW (YELLOW) Urine Appearance CLEAR (CLEAR) Urine pH 5.0 (5-6) Ur Specific [place] 1.020 (1.005-1.025) Urine Protein NEGATIVE (Negative) Urine Ketones NEGATIVE (NEGATIVE) Urine Blood NEGATIVE (0-5) Eliel/ul Urine Nitrite NEGATIVE (NEGATIVE) Urine Bilirubin NEGATIVE (NEGATIVE) Urine Urobilinogen NORMAL (0-1) mg/dL Ur Leukocyte Esterase NEGATIVE (NEGATIVE) Urine Culture Reflexed NO (NO) Urine Glucose NEGATIVE (NEGATIVE) mg/dL Specimen Received 07/11/17 1313 - Progress Progress Note: 07/11/17 13:57 He is communicative, follows all commands, undresses self, good coordination on arrival. Will not speak but is playing on phone and able to text. Gives hand motions/gestures to answer questions. 07/11/17 16:00 He is stable. Returned to normal state. Prolactin level pending. Advised family to consider epileptiform and no-epileptiform seizures and treatments. Appt with Dr Dias tomorrow at 11AM. Counseled pt/family regarding: lab results, diagnosis, need for follow-up - Departure Time of Disposition: 16:01 Departure Disposition: Home Clinical Impression: Seizure Condition: Stable Critical Care Time: No Referrals: SHAD DIAS MD [Primary Care Provider] - Instructions: Seizures, Adult (DC) Additional Instructions: No driving, climbing, swimming, hot tubs, ladders. See Dr Dias tomorrow at 11AM. Return for problems or concerns. Stay with family tonite.
[2017-07-11 13:58] LABS: Appearance CLEAR (CLEAR); Bilirubin NEGATIVE (NEGATIVE); Blood NEGATIVE Ery/ul (0-5); Glucose NEGATIVE (NEGATIVE); Ketones NEGATIVE (NEGATIVE); Leukocyte Esterase NEGATIVE (NEGATIVE); Nitrite NEGATIVE (NEGATIVE); Protein,Urine Dip NEGATIVE (Negative); Urobilinogen NORMAL mg/dL (0-1)
[2017-07-11 14:03] LABS: ANION GAP 11.7 MEQ/L (5-15); BLOOD UREA NITROGEN 16 mg/dL (9-20); CHLORIDE 110 mEq/L (98-107); Calcium 8.4 mg/dL (8.5-10.1); Carbon Dioxide 21.3 mEq/L (21-32); Creatinine 1 1.21 mg/dl (0.55-1.30); EST GLOMERULAR FILTRATION RATE > 60 ML/MIN; Glucose 94 MG/DL (70-110); Potassium 3.7 mEq/L (3.5-5.1); SODIUM 139 mEq/L (136-145)
[2017-07-11 15:59] VITALS: BP 133/72; PULSE 60
[2017-07-11 16:02] VITALS: O2SAT 97
== END 2017-07-11 16:35 | disposition home or self-care (01) ==
LOC: ED 13:13
DX: R56.9 Unspecified convulsions (principal)
CPT/HCPCS: 36415; 80048; 81002; 82550; 84146; 85025; 94770; 96360; 99284

== ENCOUNTER 2017-08-08 17:47 | Emergency (ER) | payer OTHER ==
[2017-08-08 18:23] VITALS: O2SAT 97
[2017-08-08 18:38] LABS: Basophil (Absolute #) 0 (0-0.4); Eosinophil % 1.1 % (0.00-5.0); Eosinophil (Absolute #) 0.08 (0-0.5); Granulocyte Absolute (ANC) 4.76 (1.4-6.9); Granulocytes % 66.4 % (36.0-66.0); Hemoglobin 14.9 gm/dl (12.5-18.0); Lymphocyte (Absolute #) 1.67 (1.0-4.6); Lymphocytes % 23.3 % (24.0-44.0); Mean Corpuscular Hemoglobin 30.2 pg (26-32); Mean Corpuscular Hgb Concent. 34.7 g/dl (32-36); Mean Platelet Volume 11.9 fl (6-9.5); Monocyte (Absolute #) 0.66 (0.0-1.3); Monocytes % 9.2 % (0.0-12.0); Platelet Count 208 K/mm3 (150-450); Red Blood Count 4.94 M/mm3 (4.1-5.6); Red Cell Distribution Width 12.9 % (11.5-14.0); White Blood Count 7.2 K/mm3 (4.0-10.5)
[2017-08-08 18:41] LABS: ALBUMIN 4.1 g/dl (3.5-5.0); ALKALINE PHOSPHATASE 54 U/L (38-126); ANION GAP 15.4 MEQ/L; BLOOD UREA NITROGEN 23 mg/dl (9-20); CHLORIDE 107 mEq/L (98-107); Calcium 9.2 mg/dl (8.4-10.2); Carbon Dioxide 23 mmol/L (22-30); Creatinine 1 1.22 mg/dl (0.66-1.25); Glucose 72 mg/dL (74-106); Potassium 3.9 mmol/L (3.5-5.1); SGOT/AST 26 U/L (17-59); SGPT/ALT 15 U/L (0-50); SODIUM 141 mmol/L (137-145); Total Protein 6.8 mg/dl (6.3-8.2)
[2017-08-08 18:47] LABS: VALPROIC ACID (DEPAKOTE) 33.8 (50-100)
[2017-08-08 18:57] VITALS: BP 134/68; PULSE 76
--- NOTE | 2017-08-08 19:32 | ERPHSYRPT ---
- History of Present Illness Time Seen by Provider: 08/08/17 17:50 Source: family (mother), EMS Patient Subjective Stated Complaint: EMS STATES PATIENT HAD SEIZURE EARLIER TODAY THAT LASTED 17 MINUTES. STATES THAT HE WAS WALKING BACK INTO THE HOUSE AND FELL ONTO RIGHT SHOULDER. ALSO HAD ONE SEIZURE EN ROUTE TO HOSPITAL. HX SEIZURES AND IS DOING MED ADJUSTMENT NOW. Triage Nursing Assessment: ARRIVES PER EMS TO ROOM THREE. SKIN W/D, FLUSHED. PATIENT APHASIC AT THIS TIME BUT IS COMMUNICATING WITH HANDS AND IS COMPREHENDING APPROPRIATELY. ANSWERING QUESTIONS APPROPRIATELY. NO SEIZURE ACTIVITY AT THIS TIME. RESP NONLABORED. IV PRESENT PER EMS, 20 GA LEFT ARM Physician History: CC: seizure Hx: 27 y/o patient with hx of seizures, uncertain if epileptic or nonepileptic. He has been cared from at [facility]. He was on keppra but recently was switched to depakote. Today he went for a walk. Came back with prodrome of seizure. Mother states he had seizure. Fell on right shoulder. Complained of right shoulder pain. Had another seizure in EMS. Was given versed 2.5mg IV. He usually does not talk after these seizures for a while and then recovers. He is not talking but he communicates and follows all commands as usual. Timing/Duration: today Severity: moderate Allergies/Adverse Reactions: azithromycin [From Zithromax] Allergy (Verified 06/28/17 08:40) cetirizine HCl [From Zyrtec] Allergy (Verified 06/28/17 08:40) Home Medications: Levetiracetam [Keppra] 1,500 mg PO BID 06/27/17 [History] Topiramate [Topamax] 300 mg PO BID 06/27/17 [History] Divalproex Sodium [Depakote] 750 mg PO BID 08/08/17 [History] Duloxetine HCl [Cymbalta] 60 mg PO DAILY 08/08/17 [History] Temazepam 15 mg [Restoril 15 MG] 15 mg PO HS 08/08/17 [History] Hx Tetanus, Diphtheria Vaccination/Date Given: Yes Hx Influenza Vaccination/Date Given: Yes Hx Pneumococcal Vaccination/Date Given: No - Review of Systems Constitutional: No Fever, No Chills Eyes: No Symptoms Ears, Nose, & Throat: No Symptoms Abdominal/Gastrointestinal: Vomiting (at home) Neurological: Seizure, No Focal Weakness All Other Systems: Unable due to condition - Past Medical History Pertinent Past Medical History: Yes Neurological History: Seizures ENT History: No Pertinent History Cardiac History: No Pertinent History Respiratory History: No Pertinent History Endocrine Medical History: No Pertinent History Musculoskeletal History: Fractures, Other GI Medical History: No Pertinent History History: No Pertinent History Psycho-Social History: Anxiety, Depression Male Reproductive Disorders: No Pertinent History Other Medical History: low testosterone,back/ankle/knee hx fx. Epileptiform and Non-Epileptiform Seizures. Arnold-Chiari Malformation - Past Surgical History Past Surgical History: No - Social History Smoking Status: Never smoker Exposure to second hand smoke: No Drug Use: none Patient Lives Alone: No - Nursing Vital Signs Nursing Vital Signs: Initial Vital Signs Temperature 99 F 08/08/17 17:49 Pulse Rate 89 08/08/17 17:49 Respiratory Rate 16 08/08/17 17:49 Blood Pressure 149/85 08/08/17 17:49 O2 Sat by Pulse Oximetry 97 08/08/17 17:49 Pain Scale Pain Intensity 8 - Physical Exam General Appearance: alert Eye Exam: PERRL/EOMI Ears, Nose, Throat Exam: moist mucous membranes Neck Exam: normal inspection, non-tender, supple, No midline tenderness Respiratory Exam: normal breath sounds, lungs clear Cardiovascular Exam: regular rate/rhythm Gastrointestinal/Abdomen Exam: soft, No tenderness, No distention Back Exam: normal inspection Extremity Exam: normal inspection, normal range of motion (able to reach right hand to left shoulder, but hesitates due to pain.), tenderness (right shoulder) Neurologic Exam: alert, cooperative, lead cook II-XII nml as tested, No motor deficits Skin Exam: warm, dry, No rash SpO2 Interpretation: normal SpO2: 97 Oxygen Delivery: Room Air - Course Nursing assessment & vital signs reviewed: Yes Ordered Tests: Active Orders 24 hr Category Date Time Status Fire Safety Inspector STAT Care 08/08/17 17:50 Active IV Insertion STAT Care 08/08/17 17:50 Active Sling Application STAT Care 08/08/17 19:39 Active SHOULDER Stat Exams 08/08/17 17:50 Taken CBC W DIFF Stat Lab 08/08/17 18:00 Completed CMP Stat Lab 08/08/17 18:00 Completed VALPROIC ACID (DEPAKOTE) Stat Lab 08/08/17 18:00 Completed Medication Summary Discontinued Medications Generic Name Dose Route Start Last Admin Trade Name Louann PRN Reason Stop Dose Admin Ibuprofen 600 mg 08/08/17 19:39 Motrin 600 Mg PO 08/08/17 19:40 STAT ONE Lab/Rad Data: Laboratory Result Diagrams 08/08/17 18:00 08/08/17 18:00 Laboratory Results 08/08/17 08/08/17 Range/Units 18:00 18:00 WBC 7.2 (4.0-10.5) K/mm3 RBC 4.94 (4.1-5.6) M/mm3 Hgb 14.9 (12.5-18.0) gm/dl Hct 43.0 (42-50) % MCV 87.0 (78-100) fl MCH 30.2 (26-32) pg MCHC 34.7 (32-36) g/dl RDW 12.9 (11.5-14.0) % Plt Count 208 (150-450) K/mm3 MPV 11.9 H (6-9.5) fl Gran % 66.4 H (36.0-66.0) % Lymphocytes % 23.3 L (24.0-44.0) % Monocytes % 9.2 (0.0-12.0) % Eosinophils % 1.1 (0.00-5.0) % Basophils % 0.0 (0.0-0.4) % Basophils # 0 (0-0.4) Sodium 141 (137-145) mmol/L Potassium 3.9 (3.5-5.1) mmol/L Chloride 107 (98-107) mEq/L Carbon Dioxide 23 (22-30) mmol/L Anion Gap 15.4 MEQ/L BUN 23 H (9-20) mg/dl Creatinine 1.22 (0.66-1.25) mg/dl Estimated GFR > 60 ML/MIN Glucose 72 L (74-106) mg/dL Calcium 9.2 (8.4-10.2) mg/dl Total Bilirubin 0.40 (0.2-1.3) mg/d? AST 26 (17-59) U/L ALT 15 (0-50) U/L Alkaline Phosphatase 54 (38-126) U/L Serum Total Protein 6.8 (6.3-8.2) mg/dl Albumin 4.1 (3.5-5.0) g/dl Valproic Acid 33.8 L (50-100) - Progress Progress Note: 08/08/17 19:31 right shoulder xray: sonia 6:23 PM 08/08/2017: Compared to 09/29/11. New STS. O/W negative fx/dislocation. 08/08/17 19:45 He is better. Speaking. No focal weakness. Instr given. Counseled pt/family regarding: lab results, diagnosis, need for follow-up, rad results - Departure Time of Disposition: 19:45 Departure Disposition: Home Clinical Impression: Seizure, Contusion of right shoulder Condition: Fair Critical Care Time: No Referrals: SHAD DIAS MD [Primary Care Provider] - Instructions: Shoulder Sprain, Seizures, Adult (DC) Additional Instructions: No driving, climbing, swimming, or hot tubs. Continue depakote. Call your neurologist and dR Dias tomorrow with report. Ice to right shoulder off and on. Shoulder sling for one day. Ibuprofen as directed for pain. Prescriptions: Ibuprofen 600 mg PO Q6H PRN PRN #15 tablet PRN Reason: Pain
[2017-08-08] MEDS ORDERED: MOTRIN 600 MG PO ONE (19:39)
[2017-08-08] MEDS ORDERED: MOTRIN 600 MG ONE (19:42)
--- NOTE | 2017-08-09 08:36 | XRAY ---
Indication: Shoulder pain following fall. Comparison: September 29, 2011. 3 views of the right shoulder demonstrates new soft tissue swelling. No other bony, articular, or soft tissue abnormalities.
== END 2017-08-08 19:55 | disposition home or self-care (01) ==
LOC: ED 17:47
DX: R56.9 Unspecified convulsions (principal); S40.011A Contusion of right shoulder, initial encounter; W01.0XXA Fall on same level from slipping, tripping and stumbling without subsequent striking against object, initial encounter; Z79.899 Other long term (current) drug therapy; F41.8 Other specified anxiety disorders
CPT/HCPCS: 36000; 36415; 73030; 80053; 80164; 85025; 93041; 99284; A9270-GY

== ENCOUNTER 2017-08-19 19:32 | Emergency (ER) | payer OTHER ==
--- NOTE | 2017-08-19 19:41 | ERPHSYRPT ---
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 Hunter who has known pt and pt has had full neuro workups without pathology other than a chiari formation but no cause of seizures found; also no EEG seizures so may have been psychogenic; skull and C-spine all nontender but new headache is described by pt so will check CT head; no neuro deficits no pronater drift ; Timing/Duration: today Severity: moderate Character of Deficits: unable to speak (but communicates by writing clearly) Deficits: no difficulties Baseline/Normal Cognition: alert oriented x 3 Current Cognition: alert oriented x 3 Baseline Gait: walks w/o assistance Allergies/Adverse Reactions: azithromycin [From Zithromax] Allergy (Verified 06/28/17 08:40) cetirizine HCl [From Zyrtec] Allergy (Verified 06/28/17 08:40) Home Medications: Levetiracetam [Keppra] 1,500 mg PO BID 06/27/17 [History] Topiramate [Topamax] 300 mg PO BID 06/27/17 [History] Divalproex Sodium [Depakote] 750 mg PO BID 08/08/17 [History] Duloxetine HCl [Cymbalta] 60 mg PO DAILY 08/08/17 [History] Temazepam 15 mg [Restoril 15 MG] 15 mg PO HS 08/08/17 [History] Hx Tetanus, Diphtheria Vaccination/Date Given: Yes Hx Influenza Vaccination/Date Given: Yes Hx Pneumococcal Vaccination/Date Given: No - Review of Systems Constitutional: No Fever, No Chills Eyes: No Symptoms Ears, Nose, & Throat: No Symptoms Respiratory: No Cough, No Dyspnea Cardiac: No Chest Pain, No Edema, No Syncope Abdominal/Gastrointestinal: No Abdominal Pain, No Nausea, No Vomiting, No Diarrhea Genitourinary Symptoms: No Dysuria Musculoskeletal: No Back Pain, No Neck Pain Skin: No Rash Neurological: Headache, Other (not speaking - sim to prior reported seizures), No Dizziness, No Focal Weakness, No Sensory Changes Psychological: No Symptoms Endocrine: No Symptoms All Other Systems: Reviewed and Negative - Past Medical History Pertinent Past Medical History: Yes Neurological History: Seizures ENT History: No Pertinent History Cardiac History: No Pertinent History Respiratory History: No Pertinent History Endocrine Medical History: No Pertinent History Musculoskeletal History: Fractures, Other GI Medical History: No Pertinent History History: No Pertinent History Psycho-Social History: Anxiety, Depression Male Reproductive Disorders: No Pertinent History Other Medical History: low testosterone,back/ankle/knee hx fx. Epileptiform and Non-Epileptiform Seizures. Arnold-Chiari Malformation - Past Surgical History Past Surgical History: No - Social History Smoking Status: Never smoker Exposure to second hand smoke: No Drug Use: none Patient Lives Alone: No - Nursing Vital Signs Nursing Vital Signs: Initial Vital Signs Temperature 99.2 F 08/19/17 19:44 Pulse Rate 73 08/19/17 19:44 Respiratory Rate 18 08/19/17 19:44 Blood Pressure 157/87 08/19/17 19:44 O2 Sat by Pulse Oximetry 98 08/19/17 19:44 Pain Scale Pain Intensity 7 - Colona Coma Scale Best Eye Response (Humberto): (4) open spontaneously Best Verbal Response (Colona): (5) oriented Best Motor Response (Humberto): (6) obeys commands Colona Total: 15 - Physical Exam General Appearance: no apparent distress, alert Eye Exam: bilateral eye: PERRL, EOMI Ears, Nose, Throat Exam: normal ENT inspection, moist mucous membranes Neck Exam: normal inspection, non-tender, supple Respiratory: normal breath sounds, lungs clear, airway intact, No respiratory distress Cardiovascular: regular rate/rhythm, No edema Gastrointestinal: soft, No tenderness, No distention Back Exam: normal inspection Extremity Exam: normal inspection, No pedal edema 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, 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 Coordination/Gait: normal finger to nose, normal gait Motor/Sensory: no motor deficit, no sensory deficit, no pronator drift DTR: bicep (R): 2+, bicep (L): 2+, tricep (R): 2+, tricep (L): 2+, knee (R): 2+ , knee (L): 2+, ankle (R): 2+, ankle (L): 2+ Skin Exam: normal color, warm, dry, No rash - Course Nursing assessment & vital signs reviewed: Yes EKG Interpreted by Me: Sinus Rhythm, NORMAL AXIS, Non-specific ST Changes - Radiology Exams Right Shoulder X-ray Interpretation: Reviewed by me, Other (grade 1 AC sep) - CT Exams Head CT Interpretation: Tele-radiologist Report, No/Intracranial Hemorrhag Cervical Spine CT Interpretation: Tele-radiologist Report, No Fracture Ordered Tests: Active Orders 24 hr Category Date Time Status Core Sucker STAT Care 08/19/17 19:44 Active Clean Catch Urine Specimen STAT Care 08/19/17 19:42 Active EKG-ER Only STAT Care 08/19/17 19:42 Active IV Insertion STAT Care 08/19/17 19:42 Active Pulse Oximetry (ED) STAT Care 08/19/17 19:42 Active CERVICAL SPINE WO CONTRAST [CT] Stat Exams 08/19/17 19:46 Taken HEAD WITHOUT CONTRAST [CT] Stat Exams 08/19/17 19:43 Taken SHOULDER Stat Exams 08/19/17 19:45 Taken CBC W DIFF Stat Lab 08/19/17 19:50 Completed CMP Stat Lab 08/19/17 19:50 Completed MAG [MAGNESIUM] Stat Lab 08/19/17 19:50 Completed UA W/ MICROSCOPIC Stat Lab 08/19/17 Completed Medication Summary Discontinued Medications Generic Name Dose Route Start Last Admin Trade Name Freq PRN Reason Stop Dose Admin Sodium Chloride 1,000 mls @ 999 mls/hr 08/19/17 19:42 08/19/17 19:57 Sodium Chloride 0.9% 1000 Ml IV 08/19/17 20:42 999 mls/hr .Q1H1M STA Administration Sodium Chloride Confirm 08/19/17 19:56 Sodium Chloride 0.9% 1000 Ml Administered 08/19/17 19:57 Dose 1,000 mls @ ud .ROUTE .STK-MED ONE Lab/Rad Data: Laboratory Result Diagrams 08/19/17 19:50 08/19/17 19:50 Laboratory Results 08/19/17 08/19/17 08/19/17 Range/Units Unknown 19:50 19:50 WBC (4.0-10.5) K/mm3 RBC (4.1-5.6) M/mm3 Hgb (12.5-18.0) gm/dl Hct (42-50) % MCV (78-100) fl MCH (26-32) pg MCHC (32-36) g/dl RDW (11.5-14.0) % Plt Count (150-450) K/mm3 MPV (6-9.5) fl Gran % (36.0-66.0) % Lymphocytes % (24.0-44.0) % Monocytes % (0.0-12.0) % Eosinophils % (0.00-5.0) % Basophils % (0.0-0.4) % Basophils # (0-0.4) Sodium 142 (137-145) mmol/L Potassium 4.0 (3.5-5.1) mmol/L Chloride 106 (98-107) mmol/L Carbon Dioxide 25 (22-30) mmol/L Anion Gap 15.3 H (5-15) MEQ/L BUN 22 H (9-20) mg/dL Creatinine 1.27 H (0.66-1.25) mg/dL Estimated GFR > 60 ML/MIN Glucose 86 (74-106) mg/dL Calcium 8.9 (8.4-10.2) mg/dL Magnesium 2.0 (1.6-2.3) mg/dL Total Bilirubin 0.20 (0.2-1.3) mg/dL AST 26 (17-59) U/L ALT 15 (0-50) U/L Alkaline Phosphatase 64 (38-126) U/L Serum Total Protein 6.6 (6.3-8.2) g/dL Albumin 4.0 (3.5-5.0) g/dL Ur Collection Type VOID Urine Color YELLOW (YELLOW) Urine Appearance CLOUDY (CLEAR) Urine pH 6.0 (5-6) Ur Specific [place] 1.020 (1.005-1.025) Urine Protein NEGATIVE (Negative) Urine Ketones TRACE (NEGATIVE) Urine Blood 5-10 (0-5) Eliel/ul Urine Nitrite NEGATIVE (NEGATIVE) Urine Bilirubin NEGATIVE (NEGATIVE) Urine Urobilinogen 4 (0-1) mg/dL Ur Leukocyte Esterase NEGATIVE (NEGATIVE) Urine Microscopic RBC 0-2 (0-2) /HPF Urine Microscopic WBC 0-2 (0-5) /HPF Ur Epithelial Cells RARE (FEW) /HPF Urine Bacteria RARE (NEGATIVE) /HPF Urine Culture Reflexed NO (NO) Urine Glucose NEGATIVE (NEGATIVE) mg/dL Specimen Received 08/19/17 2000 08/19/17 Range/Units 19:50 WBC 6.8 (4.0-10.5) K/mm3 RBC 4.76 (4.1-5.6) M/mm3 Hgb 14.4 (12.5-18.0) gm/dl Hct 42.8 (42-50) % MCV 89.9 (78-100) fl MCH 30.3 (26-32) pg MCHC 33.6 (32-36) g/dl RDW 12.9 (11.5-14.0) % Plt Count 190 (150-450) K/mm3 MPV 12.3 H (6-9.5) fl Gran % 57.9 (36.0-66.0) % Lymphocytes % 25.9 (24.0-44.0) % Monocytes % 12.9 H (0.0-12.0) % Eosinophils % 3.0 (0.00-5.0) % Basophils % 0.3 (0.0-0.4) % Basophils # 0.02 (0-0.4) Sodium (137-145) mmol/L Potassium (3.5-5.1) mmol/L Chloride (98-107) mmol/L Carbon Dioxide (22-30) mmol/L Anion Gap (5-15) MEQ/L BUN (9-20) mg/dL Creatinine (0.66-1.25) mg/dL Estimated GFR ML/MIN Glucose (74-106) mg/dL Calcium (8.4-10.2) mg/dL Magnesium (1.6-2.3) mg/dL Total Bilirubin (0.2-1.3) mg/dL AST (17-59) U/L ALT (0-50) U/L Alkaline Phosphatase (38-126) U/L Serum Total Protein (6.3-8.2) g/dL Albumin (3.5-5.0) g/dL Ur Collection Type Urine Color (YELLOW) Urine Appearance (CLEAR) Urine pH (5-6) Ur Specific [place] (1.005-1.025) Urine Protein (Negative) Urine Ketones (NEGATIVE) Urine Blood (0-5) Eliel/ul Urine Nitrite (NEGATIVE) Urine Bilirubin (NEGATIVE) Urine Urobilinogen (0-1) mg/dL Ur Leukocyte Esterase (NEGATIVE) Urine Microscopic RBC (0-2) /HPF Urine Microscopic WBC (0-5) /HPF Ur Epithelial Cells (FEW) /HPF Urine Bacteria (NEGATIVE) /HPF Urine Culture Reflexed (NO) Urine Glucose (NEGATIVE) mg/dL Specimen Received - Progress Progress: improved, re-examined Progress Note: 08/19/17 21:32 discussed with pt elevated renal functions and hematuria and shoulder for f/u with PCP as well as continued f/u for seizures and he and family understand. Counseled pt/family regarding: lab results, diagnosis, need for follow-up, rad results - Departure Time of Disposition: 21:26 Departure Disposition: Home Clinical Impression: seizure previously determined as nonepil, right shoudler AC mild sep, Hematuria , elevated renal functions Condition: Good Critical Care Time: No Referrals: SHAD DIAS MD [Primary Care Provider] - Instructions: Seizures, Adult (DC), Blood in the Urine (Hematuria) in Adults, Chronic Kidney Disease, Concussion in Adults Additional Instructions: followup with your dr for kidneys, blood in urine, shoulder, blood pressure , return if any concerns as even with negative CT scan delayed effects of concussion can occur. continue treatmetn for seizures.
[2017-08-19] MEDS ORDERED: Sodium Chloride 0.9% 1000 ML 1,000 ML IV STA (19:42)
[2017-08-19] MEDS ORDERED: Sodium Chloride 0.9% 1000 ML 1,000 ML ONE (19:56)
[2017-08-19 20:20] LABS: BASOPHIL % 0.3 % (0.0-0.4); Basophil (Absolute #) 0.02 (0-0.4); Granulocyte Absolute (ANC) 3.91 (1.4-6.9); Granulocytes % 57.9 % (36.0-66.0); Hematocrit 42.8 % (42-50); Hemoglobin 14.4 gm/dl (12.5-18.0); Lymphocyte (Absolute #) 1.75 (1.0-4.6); Lymphocytes % 25.9 % (24.0-44.0); Mean Cell Volume 89.9 fl (78-100); Mean Corpuscular Hemoglobin 30.3 pg (26-32); Mean Corpuscular Hgb Concent. 33.6 g/dl (32-36); Mean Platelet Volume 12.3 fl (6-9.5); Monocyte (Absolute #) 0.87 (0.0-1.3); Monocytes % 12.9 % (0.0-12.0); Platelet Count 190 K/mm3 (150-450); Red Blood Count 4.76 M/mm3 (4.1-5.6); Red Cell Distribution Width 12.9 % (11.5-14.0); White Blood Count 6.8 K/mm3 (4.0-10.5)
[2017-08-19 20:43] LABS: ALKALINE PHOSPHATASE 64 U/L (38-126); ANION GAP 15.3 MEQ/L (5-15); BLOOD UREA NITROGEN 22 mg/dL (9-20); CHLORIDE 106 mmol/L (98-107); Calcium 8.9 mg/dL (8.4-10.2); Carbon Dioxide 25 mmol/L (22-30); Creatinine 1 1.27 mg/dL (0.66-1.25); Glucose 86 mg/dL (74-106); SGOT/AST 26 U/L (17-59); SGPT/ALT 15 U/L (0-50); SODIUM 142 mmol/L (137-145); Total Protein 6.6 g/dL (6.3-8.2)
[2017-08-19 20:59] VITALS: O2SAT 97
[2017-08-19 21:05] LABS: Appearance CLOUDY (CLEAR); Bilirubin NEGATIVE (NEGATIVE); Glucose NEGATIVE (NEGATIVE); Ketones TRACE (NEGATIVE); Leukocyte Esterase NEGATIVE (NEGATIVE); Nitrite NEGATIVE (NEGATIVE); Protein,Urine Dip NEGATIVE (Negative); Urobilinogen 4 mg/dL (0-1)
[2017-08-19 21:06] LABS: Bacteria RARE /HPF (NEGATIVE); Epithelial Cells RARE /HPF (FEW); WBC 0-2 /HPF (0-5)
--- NOTE | 2017-08-19 21:40 | XRAY ---
Indication: Right head injury and headache following seizure. Multiple contiguous axial images obtained through the head without contrast. Comparison: June 03, 2017. Again normal appearing brain parenchyma, ventricles, and bony calvarium. Visualized paranasal sinuses and mastoid air cells are clear. Impression: Stable normal CT head without contrast exam. Comment: Preliminary interpretation was made by [facility]. No discrepancy. CTDI 49.85
--- NOTE | 2017-08-19 21:43 | XRAY ---
Indication: Right-sided head injury and headache following seizure. Multiple contiguous axial images obtained through the cervical spine. Sagittal and coronal reformatted images obtained. Comparison: June 03, 2017. Axial images again negative for acute fracture, suspicious bony lesions, or spinal canal stenosis. Sagittal and coronal reformatted images again demonstrates normal alignment. Vertebral body heights and disc spaces maintained. No acute compression fracture, subluxation, or jump facet. Normal-appearing craniocervical junction. Visualized noncontrasted soft tissues including lung apices unremarkable. CT head reported separately. Impression: Stable normal CT cervical spine. Comment: Preliminary interpretation was made by C. No discrepancy. CTDI 106.50
--- NOTE | 2017-08-19 21:44 | XRAY ---
Indication: Pain following seizure. Comparison: August 08, 2017. 3 views of the right shoulder obtained. No bony, articular, or soft tissue abnormalities.
[2017-08-19 21:51] VITALS: BP 142/84; PULSE 68
== END 2017-08-19 21:51 | disposition home or self-care (01) ==
LOC: ED 19:32
DX: R56.9 Unspecified convulsions (principal); S43.101A Unspecified dislocation of right acromioclavicular joint, initial encounter; R31.9 Hematuria, unspecified; R94.4 Abnormal results of kidney function studies; R51 Headache
CPT/HCPCS: 36000; 36415; 70450; 72125; 73030; 80053; 81000; 83735; 85025; 93005; 93041; 96360; 99284

== ENCOUNTER 2017-08-20 21:03 | Observation (INO) | payer OTHER ==
[2017-08-20] MEDS ORDERED: Zofran 4 MG/2 ML VIAL IV ONE (22:02)
[2017-08-20] MEDS ORDERED: MORPHINE SULFATE 10 MG/ML IV ONE (22:02)
[2017-08-20] MEDS ORDERED: BENADRYL 50 MG/ML IV ONE (22:02)
[2017-08-20] MEDS ORDERED: Sodium Chloride 0.9% 1000 ML 1,000 ML IV STA (22:02)
--- NOTE | 2017-08-20 22:10 | ERPHSYRPT ---
- History of Present Illness Time Seen by Provider: 08/20/17 22:05 Historian: patient, family Exam Limitations: no limitations Patient Subjective Stated Complaint: pain in lower left side that radiates to groin which causes vomiting Triage Nursing Assessment: Pt A&O x3, pain in lower left side that radiates to his groin, pain makes him vomit, having trouble urinating and it is painful, Physician History: onset of LLQ pain today with left testicular tenderness as well - no swelling , reducible hernia palpable no N/V no trauma; seen i [facility] last pm for seizure - no recurrence Timing/Duration: today Quality: sharpness, stabbing, throbbing Abdominal Pain Onset Location: LLQ, flank, other (left testicular tenderness) Pain Radiation: other (left testicle ) Severity of Pain-Max: moderate Severity of Pain-Current: moderate Associated Symptoms: testicular pain Previous symptoms: no prior history Allergies/Adverse Reactions: azithromycin [From Zithromax] Allergy (Verified 06/28/17 08:40) cetirizine HCl [From Zyrtec] Allergy (Verified 06/28/17 08:40) Home Medications: Levetiracetam [Keppra] 1,500 mg PO BID 06/27/17 [History] Topiramate [Topamax] 300 mg PO BID 06/27/17 [History] Divalproex Sodium [Depakote] 750 mg PO BID 08/08/17 [History] Duloxetine HCl [Cymbalta] 60 mg PO DAILY 08/08/17 [History] Temazepam 15 mg [Restoril 15 MG] 15 mg PO HS 08/08/17 [History] Hx Tetanus, Diphtheria Vaccination/Date Given: Yes Hx Influenza Vaccination/Date Given: Yes Hx Pneumococcal Vaccination/Date Given: No - Review of Systems Constitutional: No Fever, No Chills Eyes: No Symptoms Ears, Nose, & Throat: No Symptoms Respiratory: No Cough, No Dyspnea Cardiac: No Chest Pain, No Edema, No Syncope Abdominal/Gastrointestinal: Abdominal Pain, No Nausea, No Vomiting, No Diarrhea Genitourinary Symptoms: Flank Pain, Testicle Pain, No Dysuria Musculoskeletal: No Back Pain, No Neck Pain Skin: No Rash Neurological: No Dizziness, No Focal Weakness, No Sensory Changes Psychological: No Symptoms Endocrine: No Symptoms All Other Systems: Reviewed and Negative - Past Medical History Pertinent Past Medical History: Yes Neurological History: Seizures ENT History: No Pertinent History Cardiac History: No Pertinent History Respiratory History: No Pertinent History Endocrine Medical History: No Pertinent History Musculoskeletal History: Fractures, Other GI Medical History: No Pertinent History History: No Pertinent History Psycho-Social History: Anxiety, Depression Male Reproductive Disorders: No Pertinent History Other Medical History: low testosterone,back/ankle/knee hx fx. Epileptiform and Non-Epileptiform Seizures. Arnold-Chiari Malformation - Past Surgical History Past Surgical History: No - Social History Smoking Status: Never smoker Exposure to second hand smoke: No Drug Use: none Patient Lives Alone: No - Nursing Vital Signs Nursing Vital Signs: Initial Vital Signs Pulse Rate 51 L 08/20/17 22:33 Blood Pressure 156/93 08/20/17 22:33 O2 Sat by Pulse Oximetry 96 08/20/17 22:33 Pain Scale Pain Intensity 10 - Physical Exam General Appearance: no apparent distress, alert Eye Exam: PERRL/EOMI, eyes nml inspection Ears, Nose, Throat Exam: normal ENT inspection, pharynx normal, moist mucous membranes Neck Exam: normal inspection, non-tender, supple, full range of motion Respiratory Exam: normal breath sounds, lungs clear, No respiratory distress Cardiovascular Exam: regular rate/rhythm, normal heart sounds Gastrointestinal/Abdomen Exam: soft, tenderness, guarding, hernia, No mass Male Genitalia Exam: hernia, testicular tenderness Rectal Exam: deferred Back Exam: normal inspection, normal range of motion, No CVA tenderness, No vertebral tenderness Extremity Exam: normal inspection, normal range of motion, pelvis stable Neurologic Exam: alert, oriented x 3, cooperative, normal mood/affect, nml cerebellar function, sensation nml, No motor deficits Skin Exam: normal color, warm, dry - Course Nursing assessment & vital signs reviewed: Yes - Radiology Ultrasound Exam Pelvis Ultrasound: No Torsion/Nml Flow Ordered Tests: Active Orders 24 hr Category Date Time Status Clean Catch Urine Specimen STAT Care 08/20/17 22:02 Active IV Insertion STAT Care 08/20/17 22:02 Active NPO (ED) STAT Care 08/20/17 22:02 Active ABDOMEN AND PELVIS W/0 CONTRAS [CT] Stat Exams 08/20/17 22:03 Taken TESTICLE [US] Stat Exams 08/20/17 22:02 Taken AMYLASE Stat Lab 08/20/17 22:00 Completed CBC W DIFF Stat Lab 08/20/17 22:02 Completed CMP Stat Lab 08/20/17 22:00 Completed LIPASE Stat Lab 08/20/17 22:00 Completed Lactic Acid Stat Lab 08/20/17 22:29 Completed UA W/ MICROSCOPIC Stat Lab 08/20/17 22:00 Completed Medication Summary Discontinued Medications Generic Name Dose Route Start Last Admin Trade Name Michaelq PRN Reason Stop Dose Admin Diphenhydramine HCl 25 mg 08/20/17 22:02 08/20/17 22:17 Benadryl 50 Mg/Ml IV 08/20/17 22:03 25 mg STAT ONE Administration Diphenhydramine HCl Confirm 08/20/17 22:13 Benadryl 50 Mg/Ml Administered 08/20/17 22:14 Dose 50 mg .ROUTE .STK-MED ONE Sodium Chloride 1,000 mls @ 999 mls/hr 08/20/17 22:02 08/20/17 22:18 Sodium Chloride 0.9% 1000 Ml IV 08/20/17 23:02 999 mls/hr .Q1H1M STA Administration Sodium Chloride Confirm 08/20/17 22:13 Sodium Chloride 0.9% 1000 Ml Administered 08/20/17 22:14 Dose 1,000 mls @ ud .ROUTE .STK-MED ONE Morphine Sulfate 8 mg 08/20/17 22:02 08/20/17 22:17 Morphine Sulfate 10 Mg/Ml IV 08/20/17 22:03 8 mg STAT ONE Administration Morphine Sulfate Confirm 08/20/17 22:13 Morphine Sulfate 10 Mg/Ml Administered 08/20/17 22:14 Dose 10 mg .ROUTE .STK-MED ONE Ondansetron HCl 4 mg 08/20/17 22:02 08/20/17 22:18 Zofran 4 Mg/2 Ml Vial IV 08/20/17 22:03 4 mg STAT ONE Administration Ondansetron HCl Confirm 08/20/17 22:12 Zofran 4 Mg/2 Ml Vial Administered 08/20/17 22:13 Dose 4 mg .ROUTE .STK-MED ONE Lab/Rad Data: Laboratory Result Diagrams 08/20/17 22:02 08/20/17 22:00 Laboratory Results 08/20/17 08/20/1718 Range/Units 22:29 22:02 22:00 WBC 9.9 (4.0-10.5) K/mm3 RBC 4.86 (4.1-5.6) M/mm3 Hgb 14.6 (12.5-18.0) gm/dl Hct 43.4 (42-50) % MCV 89.3 (78-100) fl MCH 30.0 (26-32) pg MCHC 33.6 (32-36) g/dl RDW 12.8 (11.5-14.0) % Plt Count 194 (150-450) K/mm3 MPV 11.8 H (6-9.5) fl Gran % 74.9 H (36.0-66.0) % Lymphocytes % 13.5 L (24.0-44.0) % Monocytes % 9.7 (0.0-12.0) % Eosinophils % 1.7 (0.00-5.0) % Basophils % 0.2 (0.0-0.4) % Basophils # 0.02 (0-0.4) Sodium 142 (137-145) mmol/L Potassium 4.5 (3.5-5.1) mmol/L Chloride 106 (98-107) mmol/L Carbon Dioxide 23 (22-30) mmol/L Anion Gap 17.2 H (5-15) MEQ/L BUN 24 H (9-20) mg/dL Creatinine 1.47 H (0.66-1.25) mg/dL Estimated GFR > 60 ML/MIN Glucose 94 (74-106) mg/dL Lactic Acid 1.0 (0.4-2.0) Calcium 9.5 (8.4-10.2) mg/dL Total Bilirubin 0.30 (0.2-1.3) mg/dL AST 23 (17-59) U/L ALT 15 (0-50) U/L Alkaline Phosphatase 58 (38-126) U/L Serum Total Protein 6.4 (6.3-8.2) g/dL Albumin 4.0 (3.5-5.0) g/dL Amylase 56 (30-110) U/L Lipase 58 (23-300) U/L Ur Collection Type Urine Color (YELLOW) Urine Appearance (CLEAR) Urine pH (5-6) Ur Specific [place] (1.005-1.025) Urine Protein (Negative) Urine Ketones (NEGATIVE) Urine Blood (0-5) Eliel/ul Urine Nitrite (NEGATIVE) Urine Bilirubin (NEGATIVE) Urine Urobilinogen (0-1) mg/dL Ur Leukocyte Esterase (NEGATIVE) Urine Microscopic RBC (0-2) /HPF Ur Epithelial Cells (FEW) /HPF Urine Culture Reflexed (NO) Urine Glucose (NEGATIVE) mg/dL Specimen Received 08/20/17 Range/Units 22:00 WBC (4.0-10.5) K/mm3 RBC (4.1-5.6) M/mm3 Hgb (12.5-18.0) gm/dl Hct (42-50) % MCV (78-100) fl MCH (26-32) pg MCHC (32-36) g/dl RDW (11.5-14.0) % Plt Count (150-450) K/mm3 MPV (6-9.5) fl Gran % (36.0-66.0) % Lymphocytes % (24.0-44.0) % Monocytes % (0.0-12.0) % Eosinophils % (0.00-5.0) % Basophils % (0.0-0.4) % Basophils # (0-0.4) Sodium (137-145) mmol/L Potassium (3.5-5.1) mmol/L Chloride (98-107) mmol/L Carbon Dioxide (22-30) mmol/L Anion Gap (5-15) MEQ/L BUN (9-20) mg/dL Creatinine (0.66-1.25) mg/dL Estimated GFR ML/MIN Glucose (74-106) mg/dL Lactic Acid (0.4-2.0) Calcium (8.4-10.2) mg/dL Total Bilirubin (0.2-1.3) mg/dL AST (17-59) U/L ALT (0-50) U/L Alkaline Phosphatase (38-126) U/L Serum Total Protein (6.3-8.2) g/dL Albumin (3.5-5.0) g/dL Amylase (30-110) U/L Lipase (23-300) U/L Ur Collection Type CLEAN CATCH Urine Color YELLOW (YELLOW) Urine Appearance CLEAR (CLEAR) Urine pH 5.0 (5-6) Ur Specific [place] 1.030 (1.005-1.025) Urine Protein 10 (Negative) Urine Ketones MODERATE (NEGATIVE) Urine Blood 250 (0-5) Eliel/ul Urine Nitrite NEGATIVE (NEGATIVE) Urine Bilirubin NEGATIVE (NEGATIVE) Urine Urobilinogen NORMAL (0-1) mg/dL Ur Leukocyte Esterase NEGATIVE (NEGATIVE) Urine Microscopic RBC 10-15 (0-2) /HPF Ur Epithelial Cells RARE (FEW) /HPF Urine Culture Reflexed NO (NO) Urine Glucose NEGATIVE (NEGATIVE) mg/dL Specimen Received [id number] - Progress Progress: improved, re-examined Progress Note: 08/21/17 01:28 delay in workup from radiology reading and concern for hydronephrosis ; discussed with Dr. Druand and pt and all agree best to admit and make sure stone clears , recheck WBC to follow for infections. Discussed with : Anderson Will see patient in: hospital (observation) Counseled pt/family regarding: lab results, diagnosis, need for follow-up, rad results - Departure Time of Disposition: 01:29 Departure Disposition: Observation Clinical Impression: Renal calculus, hydronephrosis Condition: Good Critical Care Time: No Referrals: SHAD DIAS MD [Primary Care Provider] -
[2017-08-20 22:11] LABS: BASOPHIL % 0.2 % (0.0-0.4); Basophil (Absolute #) 0.02 (0-0.4); Eosinophil % 1.7 % (0.00-5.0); Eosinophil (Absolute #) 0.17 (0-0.5); Granulocyte Absolute (ANC) 7.42 (1.4-6.9); Granulocytes % 74.9 % (36.0-66.0); Hematocrit 43.4 % (42-50); Hemoglobin 14.6 gm/dl (12.5-18.0); Lymphocyte (Absolute #) 1.34 (1.0-4.6); Lymphocytes % 13.5 % (24.0-44.0); Mean Cell Volume 89.3 fl (78-100); Mean Corpuscular Hgb Concent. 33.6 g/dl (32-36); Mean Platelet Volume 11.8 fl (6-9.5); Monocyte (Absolute #) 0.96 (0.0-1.3); Monocytes % 9.7 % (0.0-12.0); Platelet Count 194 K/mm3 (150-450); Red Blood Count 4.86 M/mm3 (4.1-5.6); Red Cell Distribution Width 12.8 % (11.5-14.0); White Blood Count 9.9 K/mm3 (4.0-10.5)
[2017-08-20] MEDS ORDERED: Zofran 4 MG/2 ML VIAL ONE (22:12)
[2017-08-20] MEDS ORDERED: MORPHINE SULFATE 10 MG/ML ONE (22:13)
[2017-08-20] MEDS ORDERED: Sodium Chloride 0.9% 1000 ML 1,000 ML ONE (22:13)
[2017-08-20] MEDS ORDERED: BENADRYL 50 MG/ML ONE (22:13)
[2017-08-20 22:59] LABS: ALKALINE PHOSPHATASE 58 U/L (38-126); AMYLASE 56 U/L (30-110); ANION GAP 17.2 MEQ/L (5-15); BLOOD UREA NITROGEN 24 mg/dL (9-20); CHLORIDE 106 mmol/L (98-107); Calcium 9.5 mg/dL (8.4-10.2); Carbon Dioxide 23 mmol/L (22-30); Creatinine 1 1.47 mg/dL (0.66-1.25); Glucose 94 mg/dL (74-106); LIPASE 58 U/L (23-300); Potassium 4.5 mmol/L (3.5-5.1); SGOT/AST 23 U/L (17-59); SGPT/ALT 15 U/L (0-50); SODIUM 142 mmol/L (137-145); Total Protein 6.4 g/dL (6.3-8.2)
[2017-08-20 23:30] LABS: Appearance CLEAR (CLEAR); Leukocyte Esterase NEGATIVE (NEGATIVE); Nitrite NEGATIVE (NEGATIVE); Protein,Urine Dip 10 (Negative)
[2017-08-20 23:31] LABS: Bilirubin NEGATIVE (NEGATIVE); Blood 250 Ery/ul (0-5); Glucose NEGATIVE (NEGATIVE); Ketones MODERATE (NEGATIVE); Urobilinogen NORMAL mg/dL (0-1)
[2017-08-21 00:01] LABS: Epithelial Cells RARE /HPF (FEW)
[2017-08-21] MEDS ORDERED: Zofran 4 MG/2 ML VIAL IV PRN (03:00)
[2017-08-21] MEDS: Sodium Chloride 0.9% 1000 ML 1,000 ML IV SCH ×2 (03:12→08:35)
[2017-08-21] MEDS: MORPHINE SULFATE 4 MG INJ IV PRN ×2 (03:16→11:22)
[2017-08-21 07:05] LABS: ANION GAP 13.2 MEQ/L (5-15); BLOOD UREA NITROGEN 23 mg/dL (9-20); CHLORIDE 111 mmol/L (98-107); Calcium 8.5 mg/dL (8.4-10.2); Carbon Dioxide 22 mmol/L (22-30); Creatinine 1 1.13 mg/dL (0.66-1.25); Glucose 105 mg/dL (74-106); Potassium 4.3 mmol/L (3.5-5.1); SODIUM 142 mmol/L (137-145)
[2017-08-21 07:27] LABS: BASOPHIL % 0.2 % (0.0-0.4); Basophil (Absolute #) 0.01 (0-0.4); Eosinophil % 0.8 % (0.00-5.0); Eosinophil (Absolute #) 0.05 (0-0.5); Granulocyte Absolute (ANC) 3.65 (1.4-6.9); Granulocytes % 58.9 % (36.0-66.0); Hematocrit 38.2 % (42-50); Hemoglobin 12.9 gm/dl (12.5-18.0); Lymphocyte (Absolute #) 1.59 (1.0-4.6); Lymphocytes % 25.7 % (24.0-44.0); Mean Cell Volume 90.3 fl (78-100); Mean Corpuscular Hemoglobin 30.5 pg (26-32); Mean Corpuscular Hgb Concent. 33.8 g/dl (32-36); Mean Platelet Volume 11.6 fl (6-9.5); Monocyte (Absolute #) 0.89 (0.0-1.3); Monocytes % 14.4 % (0.0-12.0); Platelet Count 143 K/mm3 (150-450); Red Blood Count 4.23 M/mm3 (4.1-5.6); Red Cell Distribution Width 12.8 % (11.5-14.0); White Blood Count 6.2 K/mm3 (4.0-10.5)
--- NOTE | 2017-08-21 08:11 | PCM.HP ---
History of Present Illness - Chief Complaint Chief Complaint: renal stone with hydronephrosis History of Present Illness: is a 27 year old male who reported to the ER last night with left lower abdomen pain, left flank pain and nausea and vomiting. He was unable to keep things down, claims he still has significant pain overnight and this morning in spite of CT scan showing 2mm stone in the bladder. - Review of Systems Constitutional: No Symptoms Respiratory: No Cough, No Short Of Breath Cardiac: No Chest Pain, No Edema, No Syncope Abdominal/Gastrointestinal: Abdominal Pain, Nausea, Vomiting, No Diarrhea Genitourinary Symptoms: No Dysuria Skin: No Rash Medications & Allergies Home Medications: Home Medication List Topiramate [Topamax] 300 mg PO BID 06/27/17 [History Confirmed 08/21/17] Divalproex Sodium [Depakote] 750 mg PO BID 08/08/17 [History Confirmed 08/21/17] Duloxetine HCl [Cymbalta] 60 mg PO DAILY 08/08/17 [History Confirmed 08/21/17] Temazepam 15 mg [Restoril 15 MG] 15 mg PO HS 08/08/17 [History Confirmed 08/21/17] Allergies/Adverse Reactions: Allergies Allergy/AdvReac Type Severity Reaction Status Date / Time azithromycin [From Zithromax] Allergy Verified 06/28/17 08:40 cetirizine HCl [From Zyrtec] Allergy Verified 06/28/17 08:40 - Past Medical History Past Medical History: Yes Neurological History: Epilepsy, Seizures ENT History: No Pertinent History Cardiac History: Hypertension Respiratory History: No Pertinent History Endocrine Medical History: No Pertinent History Musculoskelatal History: Fractures, Other GI Medical History: No Pertinent History History: No Pertinent History Pyscho-Social History: Anxiety, Depression Male Reproductive Disorders: No Pertinent History Comment: low testosterone,back/ankle/knee hx fx. Epileptiform and Non- Epileptiform Seizures. Arnold-Chiari Malformation - Past Surgical History Past Surgical History: No - Social History Smoking Status: Never smoker Exposure to second hand smoke: Yes Alcohol: Occasionally Drug Use: none - Physical Exam Vital Signs: Vital Signs - 24 hr Temp Pulse Resp BP Pulse Ox 08/21/17 07:44 97.5 F 56 L 16 112/59 97 08/21/17 03:25 98.0 F 64 20 158/89 99 08/20/17 22:33 51 L 156/93 96 General Appearance: no apparent distress, alert Neurologic Exam: alert, oriented x 3, cooperative, normal mood/affect, nml cerebellar function, nml station & gait, sensation nml, No motor deficits Respiratory Exam: normal breath sounds, lungs clear, No respiratory distress Cardiovascular Exam: regular rate/rhythm, normal heart sounds, normal peripheral pulses Gastrointestinal/Abdomen Exam: soft, normal bowel sounds, No tenderness, No mass Back Exam: normal inspection, normal range of motion, No CVA tenderness, No vertebral tenderness Extremity Exam: normal inspection, normal range of motion, pelvis stable Skin Exam: normal color, warm, dry, No rash Results - Labs Lab/Micro Results: Lab Results-Last 24 Hours 08/21/17 08/21/17 Range/Units 05:20 05:20 WBC 6.2 (4.0-10.5) K/mm3 RBC 4.23 (4.1-5.6) M/mm3 Hgb 12.9 (12.5-18.0) gm/dl Hct 38.2 L (42-50) % MCV 90.3 (78-100) fl MCH 30.5 (26-32) pg MCHC 33.8 (32-36) g/dl RDW 12.8 (11.5-14.0) % Plt Count 143 L (150-450) K/mm3 MPV 11.6 H (6-9.5) fl Gran % 58.9 (36.0-66.0) % Lymphocytes % 25.7 (24.0-44.0) % Monocytes % 14.4 H (0.0-12.0) % Eosinophils % 0.8 (0.00-5.0) % Basophils % 0.2 (0.0-0.4) % Basophils # 0.01 (0-0.4) Sodium 142 (137-145) mmol/L Potassium 4.3 (3.5-5.1) mmol/L Chloride 111 H (98-107) mmol/L Carbon Dioxide 22 (22-30) mmol/L Anion Gap 13.2 (5-15) MEQ/L BUN 23 H (9-20) mg/dL Creatinine 1.13 (0.66-1.25) mg/dL Estimated GFR > 60 ML/MIN Glucose 105 (74-106) mg/dL Calcium 8.5 (8.4-10.2) mg/dL Assessment/Plan (1) Renal calculus Current Visit: Yes Status: Acute Assessment & Plan: push fluids and strain urine, treat pain and nausea at this time. (2) Nausea and vomiting Current Visit: Yes Status: Acute Code(s): R11.2 - NAUSEA WITH VOMITING, UNSPECIFIED (3) Seizure disorder Current Visit: Yes Status: Acute Assessment & Plan: continue home meds at this time Code(s): G40.909 - EPILEPSY, UNSP, NOT INTRACTABLE, WITHOUT STATUS EPILEPTICUS
--- NOTE | 2017-08-21 09:37 | XRAY ---
Indication: Left groin pain/tenderness. Multiple contiguous axial images obtained through the abdomen and pelvis without contrast as ordered. Comparison: September 29, 2011. Lung bases demonstrates minimal bibasilar dependent atelectasis. No infiltrate or effusion. Heart is not enlarged. Noncontrasted stomach and bowel loops appear nonobstructed. Appendix not seen. No free fluid/air. There is 2-3 mm left posterior urinary bladder calculus. Left ureter is prominent and there is moderate hydronephrosis from recent passage of said calculus. Remaining liver, gallbladder, pancreas, spleen, adrenal glands, right kidney, right ureter, bladder, and aorta appear unremarkable for noncontrast exam. Osseous structures intact. Impression: 2-3 mm urinary bladder calculus with left-sided hydronephrosis and hydroureter from recent passage of calculus. Comment: Preliminary interpretation was made by [facility]. No discrepancy. CTDI 23.70
--- NOTE | 2017-08-21 09:39 | XRAY ---
Indication: Left testicle pain. Two-dimensional testicle sonogram performed. Comparison: None Both testicles homogeneous in echogenicity with normal color perfusion. Right testicle measures 4.6 x 2.4 x 2.7 cm and the left measures 4.2 x 2.3 x 2.6 cm. Left and right epididymis sonographically unremarkable. No suspicious extratesticular mass or hydrocele. Impression: Negative testicular sonogram. Comment: Preliminary report was given.
[2017-08-21] MEDS ORDERED: Topamax 100 MG PO SCH (10:00)
[2017-08-21] MEDS ORDERED: NON-FORMULARY ITEM (Duloxetine Hcl [Cymbalta] 60 MG) PO SCH (10:00)
[2017-08-21] MEDS ORDERED: DIVALPROEX SODIUM 750 MG PO SCH (10:00)
[2017-08-21] MEDS ORDERED: Cymbalta 30 MG Capsule PO SCH (10:00)
[2017-08-21] MEDS ORDERED: Flomax 0.4 MG PO SCH (10:00)
[2017-08-21 12:19] VITALS: BP 106/56; PULSE 60; O2SAT 99
[2017-08-21] MEDS ORDERED: Restoril 15 MG PO SCH (22:00)
== END 2017-08-21 14:05 | disposition home or self-care (01) ==
LOC: ED 21:03 → MED SURG 08-21 02:04
PROVIDERS: ADMIT Family Medicine; ATTEND Family Medicine
DX: N20.0 Calculus of kidney (principal); N13.30 Unspecified hydronephrosis; R11.2 Nausea with vomiting, unspecified; G40.909 Epilepsy, unspecified, not intractable, without status epilepticus
CPT/HCPCS: 36000; 36415; 74176; 76870; 80048; 80053; 81000; 82150; 82360; 83605; 83690; 85025; 96374; 99285; G0378; J1200; J2270; J2405; A9270-GY

== ENCOUNTER 2022-11-19 21:25 | Emergency (ER) | payer BC ==
[2022-11-19] MEDS ORDERED: Ativan 2 MG/1 ML VIAL ONE (21:29)
[2022-11-19] MEDS ORDERED: Keppra 500 MG/5 ML*** 1,000 MG in D5w 100ML Mini Bag 100 ML 100 ML IV ONE (21:32)
[2022-11-19] MEDS ORDERED: Sodium Chloride 0.9% 1000 ML 1,000 ML IV STA ×2 (21:32→22:33)
[2022-11-19] MEDS ORDERED: D50W 50 ml Abboject IV ONE (21:38)
[2022-11-19] MEDS ORDERED: Sodium Chloride 0.9% 1000 ML 1,000 ML ONE ×2 (21:59→23:23)
[2022-11-19] MEDS ORDERED: D5w 100ML Mini Bag 100 ML 100 ML IV ONE (21:59)
[2022-11-19] MEDS ORDERED: Keppra 500 MG/5 ML ONE ×2 (21:59→22:03)
[2022-11-19 22:19] LABS: Absolute Neutrophil Ct (ANC) 3.71 x10^3/uL (1.4-6.9); BASOPHIL % 0.7 % (0.0-0.4); Basophil (Absolute #) 0.05 x10^3/uL (0-0.4); Eosinophil % 1.6 % (0.00-5.0); Eosinophil (Absolute #) 0.11 x10^3/uL (0-0.5); Hematocrit 40.9 % (42-50); Hemoglobin 14.2 g/dL (12.5-18.0); IMMATURE GRAN # 0.01 x10^3u/L (0.00-0.03); IMMATURE GRAN % 0.1 % (0.00-0.4); Lymphocyte (Absolute #) 2.26 x10^3/uL (1.0-4.6); Lymphocytes % 32.5 % (24.0-44.0); Mean Cell Volume 86.5 fL (78-100); Mean Corpuscular Hgb Concent. 34.7 g/dL (32-36); Mean Platelet Volume 10.8 fL (7.5-11.0); Monocyte (Absolute #) 0.81 x10^3/uL (0.0-1.3); Monocytes % 11.7 % (0.0-12.0); Neutrophil % 53.4 % (36.0-66.0); Platelet Count 221 x10^3/uL (150-450); Red Blood Count 4.73 x10^6/uL (4.1-5.6); Red Cell Distribution Width 12.3 % (11.5-14.0)
[2022-11-19 22:37] LABS: ALBUMIN 4.1 g/dL (3.5-5.0); ALKALINE PHOSPHATASE 47 U/L (38-126); ANION GAP 18.4 MEQ/L (5-15); BLOOD UREA NITROGEN 15 mg/dL (9-20); CHLORIDE 97 mmol/L (98-107); Calcium 8.4 mg/dL (8.4-10.2); Carbon Dioxide 22 mmol/L (22-30); EST GLOMERULAR FILTRATION RATE > 60.0 ML/MIN; Glucose 70 mg/dL (74-106); Potassium 3.1 mmol/L (3.5-5.1); SGOT/AST 43 U/L (17-59); SGPT/ALT 27 U/L (0-50); SODIUM 134 mmol/L (137-145); Total Protein 6.9 g/dL (6.3-8.2)
[2022-11-19 23:25] LABS: Appearance Clear (Clear); Bacteria None Seen /HPF (None Seen); Bilirubin Negative (Negative); Blood Negative (Negative); Epithelial Cells None Seen /HPF (None Seen); Glucose, Urine Negative (Negative); Hyaline Casts NONE SEEN /LPF (0-2); Ketones Negative (Negative); Leukocyte Esterase Negative (Negative); Nitrite Negative (Negative); Ph 5.5 (4.6-8.0); Protein,Urine Dip Negative (Negative); RBC 0-2 /HPF (0-5); Specific Gravity <=1.005 (1.005-1.030); Urobilinogen 0.2 mg/dL (0.2); WBC 0-2 /HPF (0-5)
[2022-11-19 23:28] LABS: ADD URINE CULTURE? NO (NO)
[2022-11-19 23:35] LABS: Amphetamine,Urine NEGATIVE (NEGATIVE); Barbiturate,Urine NEGATIVE (NEGATIVE); Benzodiazepine,Urine POSITIVE (NEGATIVE); Cocaine,Urine NEGATIVE (NEGATIVE); Methadone,Urine NEGATIVE (NEGATIVE); Opiate,Urine NEGATIVE (NEGATIVE); PCP,Urine NEGATIVE (NEGATIVE); THC,Urine NEGATIVE (NEGATIVE)
--- NOTE | 2022-11-20 00:47 | XRAY ---
CLINICAL HISTORY:sz COMPARISON:CT dated 08/19/17. TECHNIQUES:Axial non-contrast CT scan of the brain was performed from the skull base to the high parietal region. Coronal and sagittal reconstructions were also obtained; FINDINGS: The visualized brain parenchyma shows a normal appearance. No focal parenchymal abnormalities are demonstrated. Bobo-white matter differentiation is maintained. No midline shifts or deformity. No intracerebral or extra axial hematoma. Normal size and configuration of the cerebral ventricles. Normal CT appearance of the posterior fossa structures namely the cerebellar hemispheres, brainstem, and cerebellar peduncles. The IACs are unremarkable. The cerebellum-pontine angles are clear. The pituitary gland, the pineal gland, and the optic chiasm are unremarkable. The osseous structures in the skull base are unremarkable. No definite calvarium fractures. Scanned paranasal sinuses are clear. IMPRESSION: 1-Unremarkable non-enhanced CT study for the brain. 2-No significant interval changes are noted. Electronically Signed by: Gary Robbins MD. (11/19/2022 23:45:07 [employer])
--- NOTE | 2022-11-20 02:07 | ERPHSYRPT ---
- History of Present Illness Time Seen by Provider: 11/19/22 21:40 Source: family, EMS Exam Limitations: intoxication Patient Subjective Stated Complaint: pt was at his wedding and was drinking alcohol all day, pt had a total of 3 seizures Triage Nursing Assessment: pt presents to ED via medic 1, pt actively seizing upon arrival, seizure lasted 1 minute, ER MD notifed, 2 mg ativan given, 2 L NC applied, pt slightly combative upon triage, unable to obtain information at this time d/t patient condition Physician History: Patient is a 32-year-old white male who was at his wedding drank excessively and had 3 seizures. He apparently has a longstanding seizure disorder and is at sometimes noncompliant. Mother states that he should be on Depakote but she is not sure he takes it. She says that once he starts seizing he has repeated seizures generally Timing/Duration: today Severity: severe Associated Symptoms: seizure (X3) Allergies/Adverse Reactions: azithromycin [From Zithromax] Allergy (Verified 11/20/22 04:33) cetirizine HCl [From Zyrtec] Allergy (Verified 11/20/22 04:33) Home Medications: Topiramate [Topamax] 300 mg PO BID 06/27/17 [History] Divalproex Sodium [Depakote] 750 mg PO BID 08/08/17 [History] Duloxetine HCl [Cymbalta] 60 mg PO DAILY 08/08/17 [History] Temazepam 15 mg [Restoril 15 MG] 15 mg PO HS 08/08/17 [History] Hx Tetanus, Diphtheria Vaccination/Date Given: Yes Hx Influenza Vaccination/Date Given: Yes Hx Pneumococcal Vaccination/Date Given: No Travel Risk - International Travel Have you traveled outside of the country in past 3 weeks: No (unk) - Coronavirus Screening Are you exhibiting any of the following symptoms?: No - Vaccine Status Have you recieved a Covid-19 vaccination: No (unk) - Review of Systems All Other Systems: Unable due to condition - Past Medical History Pertinent Past Medical History: Yes Neurological History: Epilepsy, Seizures ENT History: No Pertinent History Cardiac History: Hypertension Respiratory History: No Pertinent History Endocrine Medical History: No Pertinent History Musculoskeletal History: Fractures, Other GI Medical History: No Pertinent History History: No Pertinent History Psycho-Social History: Anxiety, Depression Male Reproductive Disorders: No Pertinent History Other Medical History: low testosterone,back/ankle/knee hx fx. Epileptiform and Non-Epileptiform Seizures. Arnold-Chiari Malformation - Past Surgical History Past Surgical History: No Other Surgical History: unable to get info from patient - Social History Smoking Status: Never smoker Exposure to second hand smoke: Yes Drug Use: none Patient Lives Alone: No - Nursing Vital Signs Nursing Vital Signs: Initial Vital Signs Pulse Rate 107 H 11/19/22 21:26 Respiratory Rate 25 H 11/19/22 21:26 Blood Pressure 117/76 11/19/22 21:26 O2 Sat by Pulse Oximetry 99 11/19/22 21:26 Pain Scale Pain Intensity 0 - Physical Exam General Appearance: severe distress (Patient was seizing on arrival in the ER) Eye Exam: PERRL/EOMI, eyes nml inspection Ears, Nose, Throat Exam: normal ENT inspection, TMs normal, pharynx normal, moist mucous membranes Neck Exam: normal inspection, non-tender, supple, full range of motion Respiratory Exam: normal breath sounds, lungs clear, No respiratory distress Cardiovascular Exam: regular rate/rhythm, normal heart sounds, normal peripheral pulses Gastrointestinal/Abdomen Exam: soft, normal bowel sounds Back Exam: normal inspection, normal range of motion, No CVA tenderness, No vertebral tenderness Extremity Exam: normal inspection, normal range of motion, pelvis stable, other Neurologic Exam: intoxicated appearance, slurred speech Skin Exam: normal color, warm, dry, No rash SpO2 Interpretation: normal SpO2: 97 O2 Delivery: Room Air - Course Nursing assessment & vital signs reviewed: Yes - CT Exams Head CT Interpretation: Negative, Tele-radiologist Report Ordered Tests: Active Orders 24 hr Category Date Time Status Krueger [Catheter-Hickory Krueger] STAT Care 11/20/22 00:57 Active Seizure Precautions -SCCHED STAT Care 11/19/22 21:32 Active CHEST 1 VIEW (PORTABLE) Stat Exams 11/19/22 21:33 Taken HEAD WITHOUT CONTRAST [CT] Stat Exams 11/19/22 21:33 Completed CBC W DIFF Stat Lab 11/19/22 22:14 Completed CMP Stat Lab 11/19/22 22:14 Completed CULTURE,URINE Stat Lab 11/19/22 22:38 Received ETHYL ALCOHOL Stat Lab 11/19/22 23:42 Completed Lactic Acid Stat Lab 11/19/22 22:00 Completed Lactic Acid Stat Lab 11/20/22 00:09 Received UA W/RFX UR CULTURE Stat Lab 11/19/22 22:38 Completed Urine Triage Profile Stat Lab 11/19/22 22:38 Completed Medication Summary Discontinued Medications Generic Name Dose Route Start Last Admin Trade Name Louann PRN Reason Stop Dose Admin Dextrose Confirm 11/19/22 21:38 Dextrose 50%-Water 50 Ml Abboject Administered 11/19/22 21:39 Dose 50 ml IV .STK-MED ONE Sodium Chloride 1,000 mls @ 999 mls/hr 11/19/22 21:32 11/20/22 00:11 Sodium Chloride 0.9% 1000 Ml IV 11/19/22 22:32 Infused .Q1H1M STA Infusion Levetiracetam 1,000 mg/ 110 mls @ 400 mls/hr 11/19/22 21:32 11/19/22 22:09 Dextrose IV 11/19/22 21:48 400 mls/hr STAT ONE Administration Sodium Chloride Confirm 11/19/22 21:59 Sodium Chloride 0.9% 1000 Ml Administered 11/19/22 22:00 Dose 1,000 mls @ ud .ROUTE .STK-MED ONE Dextrose Confirm 11/19/22 21:59 D5w 100ml Mini Bag 100 Ml Administered 11/19/22 22:00 Dose 100 mls @ ud IV .STK-MED ONE Sodium Chloride 1,000 mls @ 999 mls/hr 11/19/22 22:33 11/20/22 01:09 Sodium Chloride 0.9% 1000 Ml IV 11/19/22 23:33 Infused .Q1H1M STA Infusion Sodium Chloride Confirm 11/19/22 23:23 Sodium Chloride 0.9% 1000 Ml Administered 11/19/22 23:24 Dose 1,000 mls @ ud .ROUTE .STK-MED ONE Levetiracetam Confirm 11/19/22 21:59 Levetiracetam 500 Mg/5 Ml Vial Administered 11/19/22 22:00 Dose 500 mg .ROUTE .STK-MED ONE Levetiracetam Confirm 11/19/22 22:03 Levetiracetam 500 Mg/5 Ml Vial Administered 11/19/22 22:04 Dose 500 mg .ROUTE .STK-MED ONE Lorazepam Confirm 11/19/22 21:29 Lorazepam 2 Mg/1 Ml 2 Mg Vial Administered 11/19/22 21:30 Dose 2 mg .ROUTE .STK-MED ONE Lab/Rad Data: Laboratory Result Diagrams 11/19/22 22:14 11/19/22 22:14 Laboratory Results 11/19/22 11/19/22 11/19/22 Range/Units 23:42 22:38 22:38 WBC (4.0-10.5) x10^3/uL RBC (4.1-5.6) x10^6/uL Hgb (12.5-18.0) g/dL Hct (42-50) % MCV (78-100) fL MCH (26-32) pg MCHC (32-36) g/dL RDW (11.5-14.0) % Plt Count (150-450) x10^3/uL MPV (7.5-11.0) fL Gran % (36.0-66.0) % Immature Gran % (Auto) (0.00-0.4) % Nucleat RBC Rel Count (0.00-0.1) % Eos # (Auto) (0-0.5) x10^3/uL Immature Gran # (Auto) (0.00-0.03) x10^3u/L Absolute Lymphs (auto) (1.0-4.6) x10^3/uL Absolute Monos (auto) (0.0-1.3) x10^3/uL Absolute Nucleated RBC (0.00-0.01) x10^3u/L Lymphocytes % (24.0-44.0) % Monocytes % (0.0-12.0) % Eosinophils % (0.00-5.0) % Basophils % (0.0-0.4) % Absolute Granulocytes (1.4-6.9) x10^3/uL Basophils # (0-0.4) x10^3/uL Sodium (137-145) mmol/L Potassium (3.5-5.1) mmol/L Chloride (98-107) mmol/L Carbon Dioxide (22-30) mmol/L Anion Gap (5-15) MEQ/L BUN (9-20) mg/dL Creatinine (0.66-1.25) mg/dL Estimated GFR ML/MIN Glucose (74-106) mg/dL Lactic Acid (0.4-2.0) Calcium (8.4-10.2) mg/dL Total Bilirubin (0.2-1.3) mg/dL AST (17-59) U/L ALT (0-50) U/L Alkaline Phosphatase (38-126) U/L Serum Total Protein (6.3-8.2) g/dL Albumin (3.5-5.0) g/dL Urine Color Yellow (Yellow) Urine Appearance Clear (Clear) Urine pH 5.5 (4.6-8.0) Ur Specific [place] <=1.005 (1.005-1.030) Urine Protein Negative (Negative) Urine Glucose (UA) Negative (Negative) mg/dL Urine Ketones Negative (Negative) Urine Blood Negative (Negative) Urine Nitrite Negative (Negative) Urine Bilirubin Negative (Negative) Urine Urobilinogen 0.2 (0.2) mg/dL Ur Leukocyte Esterase Negative (Negative) U Hyaline Cast (Auto) NONE SEEN (0-2) /LPF Urine Microscopic RBC 0-2 (0-5) /HPF Urine Microscopic WBC 0-2 (0-5) /HPF Ur Epithelial Cells None Seen (None Seen) /HPF Urine Bacteria None Seen (None Seen) /HPF Urine Culture Reflexed NO (NO) Urine Opiates Level NEGATIVE (NEGATIVE) Ur Methadone NEGATIVE (NEGATIVE) Urine Barbiturates NEGATIVE (NEGATIVE) Valproic Acid (50-100) ug/mL Ur Phencyclidine (PCP) NEGATIVE (NEGATIVE) Urine Amphetamine NEGATIVE (NEGATIVE) U Benzodiazepine Level POSITIVE (NEGATIVE) Urine Cocaine NEGATIVE (NEGATIVE) Urine Marijuana (THC) NEGATIVE (NEGATIVE) Ethyl Alcohol 189 H (0-10) mg/dL 11/19/22 11/19/22 11/19/22 Range/Units 22:14 22:14 22:14 WBC 7.0 (4.0-10.5) x10^3/uL RBC 4.73 (4.1-5.6) x10^6/uL Hgb 14.2 (12.5-18.0) g/dL Hct 40.9 L (42-50) % MCV 86.5 (78-100) fL MCH 30.0 (26-32) pg MCHC 34.7 (32-36) g/dL RDW 12.3 (11.5-14.0) % Plt Count 221 (150-450) x10^3/uL MPV 10.8 (7.5-11.0) fL Gran % 53.4 (36.0-66.0) % Immature Gran % (Auto) 0.1 (0.00-0.4) % Nucleat RBC Rel Count 0.0 (0.00-0.1) % Eos # (Auto) 0.11 (0-0.5) x10^3/uL Immature Gran # (Auto) 0.01 (0.00-0.03) x10^3u/L Absolute Lymphs (auto) 2.26 (1.0-4.6) x10^3/uL Absolute Monos (auto) 0.81 (0.0-1.3) x10^3/uL Absolute Nucleated RBC 0.00 (0.00-0.01) x10^3u/L Lymphocytes % 32.5 (24.0-44.0) % Monocytes % 11.7 (0.0-12.0) % Eosinophils % 1.6 (0.00-5.0) % Basophils % 0.7 (0.0-0.4) % Absolute Granulocytes 3.71 (1.4-6.9) x10^3/uL Basophils # 0.05 (0-0.4) x10^3/uL Sodium 134 L (137-145) mmol/L Potassium 3.1 L (3.5-5.1) mmol/L Chloride 97 L (98-107) mmol/L Carbon Dioxide 22 (22-30) mmol/L Anion Gap 18.4 H (5-15) MEQ/L BUN 15 (9-20) mg/dL Creatinine 1.00 (0.66-1.25) mg/dL Estimated GFR > 60.0 ML/MIN Glucose 70 L (74-106) mg/dL Lactic Acid (0.4-2.0) Calcium 8.4 (8.4-10.2) mg/dL Total Bilirubin 0.50 (0.2-1.3) mg/dL AST 43 (17-59) U/L ALT 27 (0-50) U/L Alkaline Phosphatase 47 (38-126) U/L Serum Total Protein 6.9 (6.3-8.2) g/dL Albumin 4.1 (3.5-5.0) g/dL Urine Color (Yellow) Urine Appearance (Clear) Urine pH (4.6-8.0) Ur Specific [place] (1.005-1.030) Urine Protein (Negative) Urine Glucose (UA) (Negative) mg/dL Urine Ketones (Negative) Urine Blood (Negative) Urine Nitrite (Negative) Urine Bilirubin (Negative) Urine Urobilinogen (0.2) mg/dL Ur Leukocyte Esterase (Negative) U Hyaline Cast (Auto) (0-2) /LPF Urine Microscopic RBC (0-5) /HPF Urine Microscopic WBC (0-5) /HPF Ur Epithelial Cells (None Seen) /HPF Urine Bacteria (None Seen) /HPF Urine Culture Reflexed (NO) Urine Opiates Level (NEGATIVE) Ur Methadone (NEGATIVE) Urine Barbiturates (NEGATIVE) Valproic Acid < 10.0 L (50-100) ug/mL Ur Phencyclidine (PCP) (NEGATIVE) Urine Amphetamine (NEGATIVE) U Benzodiazepine Level (NEGATIVE) Urine Cocaine (NEGATIVE) Urine Marijuana (THC) (NEGATIVE) Ethyl Alcohol (0-10) mg/dL 11/19/22 Range/Units 22:00 WBC (4.0-10.5) x10^3/uL RBC (4.1-5.6) x10^6/uL Hgb (12.5-18.0) g/dL Hct (42-50) % MCV (78-100) fL MCH (26-32) pg MCHC (32-36) g/dL RDW (11.5-14.0) % Plt Count (150-450) x10^3/uL MPV (7.5-11.0) fL Gran % (36.0-66.0) % Immature Gran % (Auto) (0.00-0.4) % Nucleat RBC Rel Count (0.00-0.1) % Eos # (Auto) (0-0.5) x10^3/uL Immature Gran # (Auto) (0.00-0.03) x10^3u/L Absolute Lymphs (auto) (1.0-4.6) x10^3/uL Absolute Monos (auto) (0.0-1.3) x10^3/uL Absolute Nucleated RBC (0.00-0.01) x10^3u/L Lymphocytes % (24.0-44.0) % Monocytes % (0.0-12.0) % Eosinophils % (0.00-5.0) % Basophils % (0.0-0.4) % Absolute Granulocytes (1.4-6.9) x10^3/uL Basophils # (0-0.4) x10^3/uL Sodium (137-145) mmol/L Potassium (3.5-5.1) mmol/L Chloride (98-107) mmol/L Carbon Dioxide (22-30) mmol/L Anion Gap (5-15) MEQ/L BUN (9-20) mg/dL Creatinine (0.66-1.25) mg/dL Estimated GFR ML/MIN Glucose (74-106) mg/dL Lactic Acid 3.4 H (0.4-2.0) Calcium (8.4-10.2) mg/dL Total Bilirubin (0.2-1.3) mg/dL AST (17-59) U/L ALT (0-50) U/L Alkaline Phosphatase (38-126) U/L Serum Total Protein (6.3-8.2) g/dL Albumin (3.5-5.0) g/dL Urine Color (Yellow) Urine Appearance (Clear) Urine pH (4.6-8.0) Ur Specific [place] (1.005-1.030) Urine Protein (Negative) Urine Glucose (UA) (Negative) mg/dL Urine Ketones (Negative) Urine Blood (Negative) Urine Nitrite (Negative) Urine Bilirubin (Negative) Urine Urobilinogen (0.2) mg/dL Ur Leukocyte Esterase (Negative) U Hyaline Cast (Auto) (0-2) /LPF Urine Microscopic RBC (0-5) /HPF Urine Microscopic WBC (0-5) /HPF Ur Epithelial Cells (None Seen) /HPF Urine Bacteria (None Seen) /HPF Urine Culture Reflexed (NO) Urine Opiates Level (NEGATIVE) Ur Methadone (NEGATIVE) Urine Barbiturates (NEGATIVE) Valproic Acid (50-100) ug/mL Ur Phencyclidine (PCP) (NEGATIVE) Urine Amphetamine (NEGATIVE) U Benzodiazepine Level (NEGATIVE) Urine Cocaine (NEGATIVE) Urine Marijuana (THC) (NEGATIVE) Ethyl Alcohol (0-10) mg/dL - Progress Progress: improved Progress Note: 11/20/22 05:38 Patient was encouraged to resume his Depakote and he said that he had medication at home. Medical Desision Making - Independent Historian Additional History obtained from: Mother, EMS, [employer]/EMT - Diagnostic Testing Diagnostic test were ordered, analyzed, and reviewed by me: Yes Radiological Interpretation: Reviewed by me - Risk of complications The pt has a mod risk of morbidity or mortality based on: Need for prescription drug management - Departure Departure Disposition: Home Clinical Impression: Alcohol intoxication, Seizure disorder Condition: Stable Critical Care Time: No Referrals: SHAD DIAS MD [Primary Care Provider] - Follow up/PCP as directed Instructions: Alcohol Use Disorder (DC), Seizures, Adult (DC)
[2022-11-20 06:02] VITALS: BP 124/81; PULSE 79; O2SAT 100
--- NOTE | 2022-11-20 08:47 | XRAY ---
Indication: Seizure. Comparison: June 03, 2017 Portable chest again demonstrates normal heart and lungs. Bony thorax intact with mild degenerative changes. No new/acute findings.
== END 2022-11-20 06:13 | disposition home or self-care (01) ==
LOC: ED 21:25
DX: F10.129 Alcohol abuse with intoxication, unspecified (principal); Y90.6 Blood alcohol level of 120-199 mg/100 ml; G40.909 Epilepsy, unspecified, not intractable, without status epilepticus; Z79.899 Other long term (current) drug therapy
CPT/HCPCS: 36415; 51702; 70450; 71045; 80053; 80164; 80307; 81001; 82077; 83605; 84146; 85025; 87086; 96360; 99284; J1953; J2060